=== PATIENT | male | born 1945 | race Caucasian/White ===

== ENCOUNTER 2017-09-11 17:17 | Emergency (ER) | payer MEDICARE, OTHER, SELFPAY ==
--- NOTE | 2017-09-11 17:17 | DT_ITS ---
This patient was seen during an EMR downtime September 06, 2017 - September 13, 2017. This patient may have a combination of paper and electronic documentation or all paper documentation. All documentation is viewable within the e-chart portion of [employer] for each patient visit.
--- NOTE | 2017-09-11 18:15 | CT_ITS ---
STUDY: CT SOFT TISSUE NECK WITHOUT CONTRAST REASON FOR EXAM: Male, 71 years old. Difficulty swallowing. RADIATION DOSAGE (If Supplied By Facility): CTDIvol = ( 17.61 ) mGy, DLP = ( 514.43 ) mGycm TECHNIQUE: The patient was scanned in a multi-detector CT scanner. High resolution transaxial imaging was performed without the administration of intravenous contrast material. Sagittal and coronal images were reconstructed. Individualized dose optimization techniques were used for this CT. COMPARISON: None. FINDINGS: Evaluation of the soft tissues of the neck is markedly limited without IV contrast. Cannot exclude some poorly defined asymmetric thickening of the left side of the oropharynx seen on axial images 52-70, and coronal images 45-47. The findings are not certain, but mass is not excluded. Recommend further evaluation with ENT exam and consider MRI with contrast. Normal bilateral parotid glands. 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 Normal bilateral parapharyngeal spaces. Normal bilateral carotid spaces. Normal bilateral sublingual and submandibular glands and spaces. Normal perivertebral space. Normal visualized bilateral faucial tonsils. The visualized tongue, tongue base are normal. The visualized cervical lymph nodes (levels I-) are within normal size limits, and maintain normal morphology. There is no demonstrated solid or cystic mass lesion. Normal epiglottis, bilateral vallecula and hypopharynx. The pre-epiglottic and paraglottic adipose spaces are normal. Normal visualized bilateral piriform sinuses, aryepiglottic folds, vocal cords, and arytenoid-cricoid articulations. Normal subglottic trachea. Normal bilateral lobes of the thyroid gland. Abnormal visualized lung apices. On the right, there is an incompletely visualized pulmonary infiltrate or mass. CT of the chest with contrast is recommended. Normal visualized paranasal sinuses. There is multilevel degenerative changes of the cervical spine. CT/Soft Tissue Neck WITH Contrast IMPRESSION: Note that CT of the neck is very limited without IV contrast 1. Cannot exclude some poorly defined asymmetric thickening of the left side of the oropharynx. The findings are not certain, but mass is not excluded. Recommend further evaluation with ENT exam and consider MRI with contrast. 2. Abnormal visualized lung apices. On the right, there is an incompletely visualized pulmonary infiltrate or mass. CT of the chest with contrast is recommended. Electronically Signed: Jr Lezama MD at 19:34 EDT , Service support ,
== END 2017-09-11 21:02 | disposition home or self-care (01) ==
LOC: ED 09-12 14:56
PROVIDERS: Emergency Provider Emergency Medicine; Family Provider Family Medicine; PCP Family Medicine
DX: J02.9 Acute pharyngitis, unspecified (principal); E11.9 Type 2 diabetes mellitus without complications; I10 Essential (primary) hypertension; E78.00 Pure hypercholesterolemia, unspecified; Z79.82 Long term (current) use of aspirin; Z79.84 Long term (current) use of oral hypoglycemic drugs; Z79.899 Other long term (current) drug therapy
CPT/HCPCS: 70491; 99283

== ENCOUNTER 2017-12-10 21:03 | Inpatient (IN) | payer MEDICARE, OTHER, SELFPAY ==
[2017-12-10 21:05] VITALS: BP 121/66; PULSE 121; RESP 18; TEMP 38.8; O2SAT 98; BMI 21.2
[2017-12-10 21:45] LABS: Absolute Lymphocyte Count 2.32 X10^3/ul (0.83-4.51); Absolute Neutrophil Count 17.5 X10^3/uL (2.0-7.7); Basophil# 0.03 X10^3/uL; Basophil% 0.1 % (0-1); Eosinophil# 0.35 X10^3/uL; Eosinophils% 1.6 % (0-5); Hematocrit 31.7 % (40-54); Lymphocyte # 2.32 X10^3/ul (4.0); Lymphocyte % 10.7 % (19-41); Mean Corp Hgb Conc 31.5 g/gl (32-36); Mean Corpuscular Hgb 27.3 pg (27.0-32.0); Mean Corpuscular Volume 86.6 fL (80-94); Mean Platelet Vol. 8.7 fl (6.2-12.0); Monocyte# 1.42 X10^3/uL; Monocyte% 6.6 % (0-10); Neutrophil # 17.47 X10^3/uL (2.7-7.7); Neutrophil % 80.7 % (47-70); Platelet Count 416 K/mm3 (150-450); RBC Distribution Width CV 14.2 % (11.6-14.6); RBC Distribution Width SD 43.2 fl (35.1-43.9); Red Blood Count 3.66 M/mm3 (4.6-6.2); White Blood Count 21.7 K/mm3 (4.4-11.0)
[2017-12-10 21:46] LABS: POSITIVE COUNT NO; POSITIVE DIFFERENTIAL NO; POSITIVE MORPHOLOGY NO
[2017-12-10 21:49] LABS: International Normalized Ratio 1.2; Partial Thromboplast Time 32.7 Seconds (24.1-36.2); Prothrombin Time (Protime)PT. 14.7 SECONDS (11.7-14.9)
[2017-12-10] MEDS: 0.9% Normal Saline 1,000 ML 999 ML IV (22:00)
[2017-12-10] MEDS: Acetaminophen 500 MG Tablet 1000 MG PO (22:00)
[2017-12-10 22:07] LABS: ALB/GLOB Ratio 0.5 RATIO (0.9-2.4); AST(SGOT) 13 U/L (15-37); Alanine Aminotransfer ALT/SGPT 13 U/L (16-61); Albumin, Serum 2.3 g/dL (3.2-5.0); Alkaline Phosphatase 72 U/L (45-117); Anion Gap 9 (5-15); BUN 16 mg/dL (7-18); BUN/Creat Ratio 16.9 RATIO (10-20); Calcium,Total 8.5 mg/dL (8.5-10.1); Chloride 94 mmol/L (98-107); Creatinine, Serum 0.95 mg/dL (0.70-1.30); EST Glomerular Filtration Rate 83 mL/min (>60); Est Glom Filt Rate - Afr Amer 100 mL/min (>60); Estimated Creatinine Clearance 61.33 ml/min; Globulin 4.5 g/dL (2.2-4.2); Glucose 304 mg/dL (74-106); Magnesium 1.4 mg/dL (1.6-2.6); Phosphorus 1.7 mg/dL (2.5-4.9); Potassium 3.9 mmol/L (3.5-5.1); Protein, Total 6.8 g/dL (6.4-8.2); Sodium Level 131 mmol/L (136-145)
[2017-12-10 22:22] VITALS: BP 144/101; PULSE 109; RESP 17; O2SAT 96
[2017-12-10 22:29] LABS: Bacteria 0 SEEN /hpf (None Seen); Mucous, Urine 0 SEEN /hpf (<or=2+); White Blood Cells 0 SEEN /hpf (0-5)
[2017-12-10 22:32] LABS: Color, Urine Yellow (Yellow); Glucose, Dipstick 1000 mg/dl (Normal); Ketone-Dipstick Negative (Negative); Leukocyte Esterase-Dipstick 25 /ul (Negative); Nitrite-Dipstick Negative (Negative); Occult Blood-Urine 25 /ul (Negative); Protein-Dipstick 30 mg/dl (Negative); Specific Gravity, Urine 1.015 (1.002-1.030); Urine Bilirubin Dipstick Negative (Negative); Urine Clarity Clear (Clear); Urine Urobilinogen 4 mg/dl (Normal)
[2017-12-10 22:39] LABS: Red Blood Cells-Urine 5-10 SEEN /hpf (0-5)
[2017-12-10 22:40] LABS: Squamous Epithelial Cells - UA 0-5 SEEN /hpf (0-5)
[2017-12-10] MEDS: Morphine 4 MG/ML Syringe IV (22:54)
--- NOTE | 2017-12-10 23:32 | ED.VISSUMM ---
- ER Visit Summary Date of Service: 12/10/17 Chief Complaint: Fever History of Present Illness: The patient is a [address] Chris and Dr. Young. Patient got his first dose of immunotherapy with Keytruda today. Family reports that this evening the patient developed a fever and confusion. Patient reports that he is a cough is productive white sputum without blood. He complains of mild shortness of breath. He has a mild sore throat. He does complain of dysuria. Physical Examination: Vitals: 101.8, 121/66, 121, 18, 98% on room air which is not hypoxic. General: Well-nourished and well-developed. Head: Normocephalic atraumatic. Neck: Supple, no lymphadenopathy. No JVD. Nontender. Cardiovascular: Regular tachycardic rhythm with 2 out of 6 systolic murmur. Respiratory: No respiratory distress. Rhonchi on right. Abdominal: Soft, nontender, nondistended, normal bowel sounds. No guarding, rebound, or peritoneal signs. Back: Nontender. Extremities: Nontender, no edema. Skin: Normal color, no rash. Neurologic: Alert, but confused. Cranial nerves II through XII are intact. Normal strength and sensation. Psych: Normal affect. Test Results: CBC is marked for a white count of 21.7 with 81 segmented neutrophils and 11 lymphocytes. H&H is 10.0 and 31.7. Chem-7 is more for sodium 131, chloride of 94, glucose 304. LFTs marked for an albumin of 2.3 and globulin 4.5, AST of 13, ALT of 13. INR is 1.2. PTT is 32.7. UA has 510 red blood cells and leukocyte esterase. Lactic acid is 2.0. Phosphorus is 1.7. Magnesium was 1.4. Chest x-ray shows an infiltrate on the right. There is also a mass. Emergency Department Course and Treatment: Patient was treated with meropenem IV, Tylenol p.o., and morphine IV. He is resting comfortably. As his temperature has come down his delirium has improved remarkably. Treatment Plan: Patient was discussed with Dr. Garrett. He will be admitted to the hospital for further evaluation and treatment. Disposition: Admitted in improved condition. Impression: 1. Postobstructive pneumonia. 2. Lung cancer with metastases. 3. Sepsis. This note was generated with [employer] dictation software. It may contain incorrect words, spelling, and punctuation that were not noted in review of the chart prior to signing ED Disposition - Plan for ED Patient: Chief Complaint: Fatigue Referrals: Frank Young MD [Primary Care Provider] -
--- NOTE | 2017-12-10 23:35 | ED.DCSUM_ITS ---
- ER Visit Summary Date of Service: 12/10/17 Chief Complaint: Fever History of Present Illness: The patient is a [address] Chris and Dr. Young. Patient got his first dose of immunotherapy with Keytruda today. Family reports that this evening the patient developed a fever and confusion. Patient reports that he is a cough is productive white sputum without blood. He complains of mild shortness of breath. He has a mild sore throat. He does complain of dysuria. Physical Examination: Vitals: 101.8, 121/66, 121, 18, 98% on room air which is not hypoxic. General: Well-nourished and well-developed. Head: Normocephalic atraumatic. Neck: Supple, no lymphadenopathy. No JVD. Nontender. Cardiovascular: Regular tachycardic rhythm with 2 out of 6 systolic murmur. Respiratory: No respiratory distress. Rhonchi on right. Abdominal: Soft, nontender, nondistended, normal bowel sounds. No guarding, rebound, or peritoneal signs. Back: Nontender. Extremities: Nontender, no edema. Skin: Normal color, no rash. Neurologic: Alert, but confused. Cranial nerves II through XII are intact. Normal strength and sensation. Psych: Normal affect. Test Results: CBC is marked for a white count of 21.7 with 81 segmented neutrophils and 11 lymphocytes. H&H is 10.0 and 31.7. Chem-7 is more for sodium 131, chloride of 94, glucose 304. LFTs marked for an albumin of 2.3 and globulin 4.5, AST of 13, ALT of 13. INR is 1.2. PTT is 32.7. UA has 510 red blood cells and leukocyte esterase. Lactic acid is 2.0. Phosphorus is 1.7. Magnesium was 1.4. Chest x-ray shows an infiltrate on the right. There is also a mass. Emergency Department Course and Treatment: Patient was treated with meropenem IV , Tylenol p.o., and morphine IV. He is resting comfortably. As his temperature has come down his delirium has improved remarkably. Treatment Plan: Patient was discussed with Dr. Garrett. He will be admitted to the hospital for further evaluation and treatment. Disposition: Admitted in improved condition. Impression: 1. Postobstructive pneumonia. 2. Lung cancer with metastases. 3. Sepsis. This note was generated with [employer] dictation software. It may contain incorrect words, spelling, and punctuation that were not noted in review of the chart prior to signing ED Disposition - Plan for ED Patient: Chief Complaint: Fatigue Referrals: Frank Young MD [Primary Care Provider] -
--- NOTE | 2017-12-10 23:53 | PCM.HP.STD ---
Problem List (1) Sepsis Status: Acute (2) CAP (community acquired pneumonia) Status: Acute (3) Lung cancer Status: Acute (4) Hyponatremia Status: Acute History of Present Illness Date of Admission: 12/10/17 Chief Complaint: Sepsis secondary to CAP The patient is a 71 year old male w/ h/o DMII, HTN, lipidemia and metastatic lung cancer on Keytruda admitted for sepsis secondary to CAP. He is a poor historian and history is taken from his son. He has been confused after taking Keytruda. He has worsening confusion and fever as the day progressed. Nothing improved or worsened his confusion. He has been having worsening productive cough as well. The intensity and frequency of the cough have gotten worse in the past few days. He has been having cough for months. Past Medical History Allergies meperidine HCl [From Demerol] Adverse Reaction (Verified 12/10/17 21:08) Vomiting pneumococcal vaccine Adverse Reaction (Verified 12/10/17 21:08) Upset Stomach tetanus and diphtheria toxoids [tetanus & diphtheria toxoids] Adverse Reaction (Verified 12/10/17 21:08) Upset Stomach Home Medications: Ambulatory Orders Medication Instructions Recorded Acarbose [Precose] 100 mg PO TID 07/15/14 Aspirin [Aspirin, Baby] 81 mg PO DAILY@0800 07/15/14 Carvedilol [Coreg] 3.125 mg PO BID 07/15/14 Levothyroxine [Synthroid] 50 mcg PO DAILY 07/15/14 Metformin HCl [Glucophage] 1,000 mg PO BIDCM 07/15/14 Omeprazole [Prilosec] 20 mg PO DAILY 07/15/14 Simvastatin [Zocor] 40 mg PO QHS 07/15/14 glipiZIDE [Glucotrol] 20 mg PO BIDAC 07/15/14 Surgical History: no surgical history Psychiatric History: No pertinent psych hx Lives: With Family Smoking Status: Former smoker Alcohol: None Drugs: None - *Family History Maternal History Items: No pertinent history Review of Systems Constitutional: Reports: Chills, Fever. Denies: Weight Change HEENT: Denies: Head Aches, Sinus Congestion, Sinus Drainage Cardiovascular: Denies: Chest Pain, Palpitations Respiratory: Reports: Cough, Shortness of breath at rest, Sputum production, Wheezing Gastrointestinal: Denies: Abdominal Pain, Nausea, Vomiting Genitourinary: Denies: Dysuria Musculoskeletal: Denies: Joint Pain, Joint Tenderness Skin: Denies: Rash, Wounds Neurological: Denies: Numbness, Tingling, Focal weakness Psychiatric: Denies: Anxiety, Depression, Homicidal Ideations, Suicidal Ideations Hematologic/ Lymphatic: Denies: Easy Bruising, Easy Bleeding VTE Information - Inpt Only VTE Present on Admission: No VTE Mechan Device Prophylaxis: SCD's VTE Pharm Prophylaxis ordered?: Yes Patient Problems: Active and Suspected Problems Sepsis (Acute) CAP (community acquired pneumonia) (Acute) Lung cancer (Acute) Hyponatremia (Acute) - Physical Exam General: Alert, Oriented x3, Cooperative HEENT: Atraumatic, PERRLA, EOMI, Normocephalic Neck: Supple, No JVD, Negative Carotid Bruits, Thyroid Normal Size and Texture Lungs: Diminished, Rhonchi, Short of Breath, Wheezes Cardiovascular: No murmurs, Tachycardic Abdomen: Bowel Sounds Present, Soft, Non Tender Extremities: No edema, Capillary Refill Less than 3 Seconds Skin: No rashes, No breakdown Musculoskeletal: No Tenderness to Palpation of Joints or Extremities Neurological: Cranial nerves II-XII grossly intact Psych/Mental Status: Normal Affect, Appropriate Vital Signs Temp Pulse Resp BP Pulse Ox 101.8 F H 109 H 17 144/101 H 96 12/10/17 21:05 12/10/17 22:22 12/10/17 22:22 12/10/17 22:22 12/10/17 22:22 Assessment/Plan All Active Problems Sepsis (Acute) CAP (community acquired pneumonia) (Acute) Lung cancer (Acute) Hyponatremia (Acute) 71 year old male w/ h/o DMII, HTN, lipidemia and metastatic lung cancer on Keytruda admitted for sepsis secondary to CAP. 1) Sepsis secondary to CAP: Chest xray disclosed Right upper lobe mass like opacity / infiltrate. Right pulmonary interstitial prominence. Probable postobstructive. WBC 21 Pt has cough and fever. Will start zosyn and vancomycin given immunosuppression. Hydration. Cultures pending. 2) Lung cancer w/ mets: Pt is on Keytruda. Supportive care. 3) HTN: Resume home meds. Cautious with b/p control in the setting of sepsis. 4) Prophylaxis: SCD / lovenox.
[2017-12-11] VITALS (19 sets, daily range): BP systolic 93–127; BP diastolic 55–60; PULSE 68–110; RESP 16–18; TEMP 36.4–37.6; O2SAT 94–96; BMI 21.9
[2017-12-11 01:01] LABS: Bedside Glucose 248 mg/dL (70-110)
[2017-12-11] MEDS: 0.9% NaCl Peripheral Flush Adult/Peds IV (01:20)
[2017-12-11] MEDS: Vancomycin IV 1,000 MG/200 ML BAG 200 MG IV (01:21)
[2017-12-11] MEDS: Piperacil/Tazobactam 3.375 GM/50 ML ML IV ×4 (01:21→21:08)
[2017-12-11] MEDS: 0.9% Normal Saline 1,000 ML 125 ML IV ×4 (01:21→21:14)
[2017-12-11 01:35] LABS: Reflex Lactate? Y
--- NOTE | 2017-12-11 01:48 | PCM.RX.CS ---
Consult Pharmacy has been consulted to manage selected antiobiotic: Vancomycin Type of Consult: New start Suspected Infection: Pneumonia Prior Doses of Antibiotics Received/Current Regimen: Medications Vancomycin HCl 750 mg/ Sodium (Chloride) 265 mls @ 250 mls/hr IV Q12H ALONZO Discontinued Medications Vancomycin HCl (Vancomycin) 1,000 mg in 200 mls @ 200 mls/hr IV RX TO DOSE ONE Stop: 12/11/17 01:29 Last Admin: 12/11/17 01:21 Dose: 200 mls/hr Labs: Sodium 131 mmol/L (136-145) L 12/10/17 21:27 Potassium 3.9 mmol/L (3.5-5.1) 12/10/17 21:27 Chloride 94 mmol/L (98-107) L 12/10/17 21:27 Carbon Dioxide 28.0 mmol/L (21.0-32.0) 12/10/17 21:27 Anion Gap 9 (5-15) 12/10/17 21:27 BUN 16 mg/dL (7-18) 12/10/17 21:27 Creatinine 0.95 mg/dL (0.70-1.30) 12/10/17 21:27 Est GFR (MDRD) Af Amer 100 mL/min (>60) 12/10/17 21:27 Est GFR (MDRD) Non-Af 83 mL/min (>60) 12/10/17 21:27 BUN/Creatinine Ratio 16.9 RATIO (10-20) 12/10/17 21:27 Glucose 304 mg/dL (74-106) H 12/10/17 21:27 Microbiology: Microbiology 12/11/17 01:00 Mucosa - Nose Influenza Types A,B Direct FA (DAVINA) - Final Weight used for dosin.5 kg Estimated Creatinine Clearance: 61 Goal Trough: 15-20 mcg/mL Pharmacy Plan for Drug Dosing: Pharmacy Service will continue to monitor and adjust dosing as required. Follow-Up Labs: Trough Vancomycin Labs to be done on [date and time ordered]: 12/12/17 @1300
[2017-12-11] MEDS: Na Biphos/Potassium Phosphate PACKET 1 PACKET PO (02:32)
[2017-12-11 02:44] LABS: Lactic Acid 0.7 mmol/L (0.4-2.0)
[2017-12-11] MEDS: Levothyroxine 50 MCG Tablet PO (05:23)
[2017-12-11 06:56] LABS: Bedside Glucose 206 mg/dL (70-110)
[2017-12-11] MEDS: Ipratropium/Albuterol Sulfate 3 ML AMPUL.NEB INHALATION ×3 (07:21→18:53)
[2017-12-11 07:25] LABS: Anion Gap 8 (5-15); BUN 11 mg/dL (7-18); BUN/Creat Ratio 13.8 RATIO (10-20); Chloride 99 mmol/L (98-107); EST Glomerular Filtration Rate 101 mL/min (>60); Est Glom Filt Rate - Afr Amer 122 mL/min (>60); Estimated Creatinine Clearance 74.97 ml/min; Glucose 257 mg/dL (74-106); Potassium 3.7 mmol/L (3.5-5.1); Sodium Level 136 mmol/L (136-145); Thyroid Stim Hormone (TSH) 2.58 uIU/mL (0.358-3.74)
[2017-12-11 07:46] LABS: Urine Sodium 47 mmol/L (Not Establ.)
[2017-12-11] MEDS: glipiZIDE 10 MG Tablet 20 MG PO ×2 (08:39→17:02)
[2017-12-11] MEDS: Carvedilol 3.125 MG TABLET PO ×2 (08:39→21:08)
[2017-12-11] MEDS: Enoxaparin 40 MG/0.4 ML Syringe SC (08:39)
[2017-12-11] MEDS: Aspirin 81 MG TAB.CHEW PO (08:39)
[2017-12-11] MEDS: Pantoprazole Sodium 20 MG Tablet PO (08:39)
[2017-12-11] MEDS: metFORMIN HCl 1,000 MG Tablet 1000 MG PO ×2 (08:39→17:01)
[2017-12-11] MEDS: guaiFENesin 1,200 MG Tablet 1200 MG PO ×2 (08:40→21:08)
[2017-12-11] MEDS: Acarbose 50 MG Tablet 100 MG PO ×3 (08:46→17:01)
[2017-12-11] MEDS: Insulin Lispro 100 UNIT/ML INSULN.PEN SC ×4 (08:46→21:08)
[2017-12-11 09:16] LABS: Osmolality, Urine 238 mOsm/KG
[2017-12-11 09:19] LABS: Osmolality, Serum 285 mOsm/KG (280-301)
[2017-12-11] MEDS: Glucerna Shake 120 ML LIQUID PO (11:25)
[2017-12-11 11:36] LABS: Bedside Glucose 194 mg/dL (70-110)
--- NOTE | 2017-12-11 12:40 | CASEMGMT ---
Addendum entered by Marie Woodard 12/11/17 14:54: Re-attempted to assess patient. Provider at bedside. Original Note: Attempted to perform case management initial assessment. Patient receiving care at this time. Will reattempt as time allows.
[2017-12-11 16:21] LABS: Bedside Glucose 153 mg/dL (70-110)
--- NOTE | 2017-12-11 16:33 | PCM.PN.HOSP ---
Patient Problems: Active and Suspected Problems Sepsis (Acute) CAP (community acquired pneumonia) (Acute) Lung cancer (Acute) Hyponatremia (Acute) Subjective: Patient advanced metastatic lung cancer on immunotherapy, Justine was admitted yesterday secondary to sepsis from postobstructive pneumonia. Patient has memory lapses and cognitive deficit as per the son therefore most probably dementia. Patient gets easily short of breath on exertion, walking or climbing stairs. He has worsening cough and brings up mucoid sputum. Denies chest pain/chest pressure Patient had 101.8?F in ER. No fever afterwards. Vitals/I&O's: Vital Signs Temp Pulse Resp BP Pulse Ox 99 F 102 H 18 109/55 L 94 12/11/17 14:55 12/11/17 14:55 12/11/17 14:55 12/11/17 14:55 12/11/17 14:55 Oxygen Delivery Method Room Air Weight: 139 lb 15.896 oz Body Mass Index (BMI) 21.9 Intake and Output for Last 24 Hours 12/09/17 12/10/17 12/11/17 23:59 23:59 23:59 Intake Total 782 / 782 Output Total 1250 / 1250 Balance -468 / -468 General: Alert, Oriented x3, Cooperative HEENT: Atraumatic, PERRLA, EOMI, Normocephalic Neck: Supple, No JVD, Negative Carotid Bruits Lungs: Diminished, Rhonchi, - - Dyspnea on exertion Cardiovascular: Regular rate, No murmurs Abdomen: Bowel Sounds Present, Soft, Non Tender, Non-Distended Extremities: No edema, Capillary Refill Less than 3 Seconds Skin: No rashes, No breakdown Musculoskeletal: No Tenderness to Palpation of Joints or Extremities, Arthritic Changes, Muscle Wasting Neurological: Cranial nerves II-XII grossly intact Psych/Mental Status: Normal Affect, Appropriate Microbiology Past 72 Hours 12/11/17 08:50 Sputum, Expectorated/Coughed Gram Stain - Final 12/11/17 01:00 Mucosa - Nose Influenza Types A,B Direct FA (DAVINA) - Final Laboratory Results 12/11/17 00:52: POC Glucose 248 H 12/11/17 02:10: Lactic Acid 0.7 12/11/17 05:20: Urine Osmolality 238 12/11/17 05:20: Ur Random Sodium 47 12/11/17 06:07: Serum Osmolality 285 12/11/17 06:07: TSH Cancelled 12/11/17 06:07: Sodium 136, Potassium 3.7, Chloride 99, Carbon Dioxide 29.0, Anion Gap 8, BUN 11, Creatinine 0.80, Estim Creat Clear Calc 74.97, Est GFR (MDRD) Af Amer 122, Est GFR (MDRD) Non-Af 101, BUN/Creatinine Ratio 13.8, Glucose 257 H, Calcium 8.0 L, TSH 2.58 12/11/17 06:53: POC Glucose 206 H 12/11/17 11:20: POC Glucose 194 H 12/11/17 16:15: POC Glucose 153 H Current Medications Acarbose (Precose) 100 mg PO TIDCM [facility] Last Admin: 12/11/17 11:24 Dose: 100 mg Acetaminophen (Tylenol) 650 mg PO Q4H PRN PRN PRN Reason: FEVER Albuterol/Ipratropium (Duoneb) 3 ml INHALATION Q6H.RT [facility] Last Admin: 12/11/17 12:39 Dose: 3 ml Aspirin (Aspirin, Baby) 81 mg PO DAILY@0800 [facility] Last Admin: 12/11/17 08:39 Dose: 81 mg Atorvastatin Calcium (Lipitor) 20 mg PO QHS [facility] Carvedilol (Coreg) 3.125 mg PO BID [facility] Last Admin: 12/11/17 08:39 Dose: 3.125 mg Enoxaparin Sodium (Lovenox) 40 mg SC DAILY [facility] Last Admin: 12/11/17 08:39 Dose: 40 mg Glipizide (Glucotrol) 20 mg PO BIDAC [facility] Last Admin: 12/11/17 08:39 Dose: 20 mg Guaifenesin (Mucinex) 1,200 mg PO BID [facility] Last Admin: 12/11/17 08:40 Dose: 1,200 mg Sodium Chloride () 1,000 mls @ 125 mls/hr IV .Q8H [facility] Last Admin: 12/11/17 12:41 Dose: 125 mls/hr Piperacillin Sod/Tazobactam Sod (Zosyn) 3.375 gm in 50 mls @ 12.5 mls/hr IV Q8 [facility] Last Admin: 12/11/17 13:04 Dose: 12.5 mls/hr Sodium Chloride () 250 mls @ 15 mls/hr IV .[id number] PRN PRN Reason: SALINE FLUSH Vancomycin HCl 750 mg/ Sodium (Chloride) 265 mls @ 250 mls/hr IV Q12H [facility] Last Admin: 12/11/17 13:04 Dose: 250 mls/hr Insulin Human Lispro (Humalog Kwikpen (Bkc)) 0 unit SC ACHS ALONZO PRN Reason: Protocol Last Admin: 12/11/17 11:24 Dose: 1 u Levothyroxine Sodium (Synthroid) 50 mcg PO DAILY@0600 [facility] Last Admin: 12/11/17 05:23 Dose: 50 mcg Metformin HCl (Glucophage) 1,000 mg PO BIDCM [facility] Last Admin: 12/11/17 08:39 Dose: 1,000 mg Nutritional Formula (Lactose Free) (Glucerna Shake) 120 ml PO 4X/DAY [facility] Ondansetron HCl (Zofran) 4 mg IV Q8H PRN PRN PRN Reason: NAUSEA Pantoprazole Sodium (Protonix) 20 mg PO DAILY [facility] Last Admin: 12/11/17 08:39 Dose: 20 mg Sodium Chloride () 5 - 30 ml IV UD PRN PRN Reason: SALINE FLUSH Last Admin: 12/11/17 01:20 Dose: 20 ml Medical Necessity - Tobacco Use Smoking Status: Former smoker Assessment/Plan All Active Problems Sepsis (Acute) CAP (community acquired pneumonia) (Acute) Lung cancer (Acute) Hyponatremia (Acute) This is a 71-year-old gentleman with history DMII, HTN, dyslipidemia and advanced metastatic lung cancer on immunotherapy, Keytruda was admitted yesterday secondary to sepsis from postobstructive pneumonia. Patient has chronic cough but has worsened for about the past few days along with fever and shortness of breath. 1) Sepsis (fever, leukocytosis with left shift) due to postobstructive right upper lobe community-acquired pneumonia: Chest xray disclosed Right upper lobe mass like opacity / infiltrate. Right pulmonary interstitial prominence. WBC 21 Pt has cough and fever. On Zosyn and vancomycin given immunosuppression. Hydration. Urinary antigens are negative. Blood culture pending. Influenza is negative. sputum culture pending. Hypotonic, hypovolemic hyponatremia: serum sodium is 131 which improved to 136 on IV fluid normal saline. Random urine sodium 47. Random urine osmolality 238 2) Lung cancer w/ mets: Pt is on Keytruda. Patient follows Dr. Chris. Had first dose of IV infusion on day of admission Supportive care. 3) HTN: Resume home meds. Cautious with b/p control in the setting of sepsis. 4) Prophylaxis: SCD / lovenox. Microbiology Past 72 Hours 12/11/17 08:50 Sputum, Expectorated/Coughed Gram Stain - Final 12/10/17 21:35 Mucosa - Throat Group A Streptococcus Rapid Screen - Preliminary 12/10/17 22:10 Urine, Clean Catch Legionella Antigen - Final 12/11/17 01:00 Mucosa - Nose Influenza Types A,B Direct FA (DAVINA) - Final Laboratory Results 12/10/17 21:27: WBC 21.7 H, RBC 3.66 L, Hgb 10.0 L, Hct 31.7 L, MCV 86.6, MCH 27.3, MCHC 31.5 L, RDW 14.2, RDW Differential 43.2, Plt Count 416, MPV 8.7, Immature Gran % (Auto) 0.300, Neut % (Auto) 80.7 H, Lymph % (Auto) 10.7 L, Humphreys % (Auto) 6.6, Eos % (Auto) 1.6, Baso % (Auto) 0.1, Absolute Neuts (auto) 17.5 H, Absolute Lymphs (auto) 2.32, Total Counted Not Reportable 12/10/17 21:27: PT 14.7, INR 1.2, APTT 32.7 12/10/17 21:27: Sodium 131 L, Potassium 3.9, Chloride 94 L, Carbon Dioxide 28.0, Anion Gap 9, BUN 16, Creatinine 0.95, Estim Creat Clear Calc 61.33, Est GFR (MDRD) Af Amer 100, Est GFR (MDRD) Non-Af 83, BUN/Creatinine Ratio 16.9, Glucose 304 H, Calcium 8.5, Phosphorus 1.7 L, Magnesium 1.4 L, Total Bilirubin 0.30, AST 13 L, ALT 13 L, Alkaline Phosphatase 72, Total Protein 6.8, Albumin 2.3 L, Globulin 4.5 H, Albumin/Globulin Ratio 0.5 L 12/10/17 21:27: Lactic Acid 2.0 12/10/17 22:10: Urine Color Yellow, Urine Clarity Clear, Urine pH 8.0, Ur Specific [place] 1.015, Urine Protein 30 H, Urine Glucose (UA) 1000 H, Urine Ketones Negative, Urine Occult Blood 25 H, Urine Nitrite Negative, Urine Bilirubin Negative, Urine Urobilinogen 4 H, Ur Leukocyte Esterase 25 H, Urine RBC 5-10 SEEN, Urine WBC 0 SEEN, Ur Squamous Epith Cells 0-5 SEEN, Urine Bacteria 0 SEEN, Urine Mucus 0 SEEN 12/11/17 00:52: POC Glucose 248 H 12/11/17 02:10: Lactic Acid 0.7 12/11/17 05:20: Urine Osmolality 238 12/11/17 05:20: Ur Random Sodium 47 12/11/17 06:07: Serum Osmolality 285 12/11/17 06:07: TSH Cancelled 12/11/17 06:07: Sodium 136, Potassium 3.7, Chloride 99, Carbon Dioxide 29.0, Anion Gap 8, BUN 11, Creatinine 0.80, Estim Creat Clear Calc 74.97, Est GFR (MDRD) Af Amer 122, Est GFR (MDRD) Non-Af 101, BUN/Creatinine Ratio 13.8, Glucose 257 H, Calcium 8.0 L, TSH 2.58 Chest X-Ray 12/10/17 21:40 IMPRESSION: Right upper lobe masslike opacity/infiltrate. Right pulmonary interstitial prominence. Code Visit Inpatient E&M: 58781 Subs Hosp L3
[2017-12-11] MEDS: Atorvastatin Calcium 20 MG Tablet PO (21:08)
[2017-12-11 23:01] LABS: Bedside Glucose 281 mg/dL (70-110)
[2017-12-12] VITALS (15 sets, daily range): BP systolic 97–111; BP diastolic 50–60; PULSE 61–109; RESP 14–18; TEMP 36.4–38.3; O2SAT 95–96
[2017-12-12] MEDS: Ipratropium/Albuterol Sulfate 3 ML AMPUL.NEB INHALATION ×4 (00:14→19:18)
[2017-12-12] MEDS: guaiFENesin/Codeine 5 ML UDC PO ×2 (00:34→18:48)
[2017-12-12] MEDS: Acetaminophen 325 MG Tablet 650 MG PO ×2 (02:53→18:48)
[2017-12-12 04:26] LABS: Bedside Glucose 167 mg/dL (70-110)
[2017-12-12] MEDS: 0.9% Normal Saline 1,000 ML 125 ML IV ×2 (05:16→13:31)
[2017-12-12] MEDS: Levothyroxine 50 MCG Tablet PO (05:16)
[2017-12-12] MEDS: Piperacil/Tazobactam 3.375 GM/50 ML ML IV ×3 (05:16→21:53)
[2017-12-12 07:13] LABS: Absolute Lymphocyte Count 1.46 X10^3/ul (0.83-4.51); Basophil# 0.02 X10^3/uL; Basophil% 0.1 % (0-1); Eosinophil# 0.46 X10^3/uL; Eosinophils% 3.1 % (0-5); Hematocrit 26.2 % (40-54); Hemoglobin 8.2 g/dl (13.0-16.5); Lymphocyte # 1.46 X10^3/ul (4.0); Lymphocyte % 9.7 % (19-41); Mean Corp Hgb Conc 31.3 g/gl (32-36); Mean Corpuscular Hgb 27.1 pg (27.0-32.0); Mean Corpuscular Volume 86.5 fL (80-94); Mean Platelet Vol. 8.5 fl (6.2-12.0); Monocyte# 1.04 X10^3/uL; Monocyte% 6.9 % (0-10); Neutrophil # 12.04 X10^3/uL (2.7-7.7); Neutrophil % 80.1 % (47-70); Platelet Count 289 K/mm3 (150-450); RBC Distribution Width CV 14.9 % (11.6-14.6); RBC Distribution Width SD 47.2 fl (35.1-43.9); Red Blood Count 3.03 M/mm3 (4.6-6.2)
[2017-12-12 07:15] LABS: POSITIVE COUNT NO; POSITIVE DIFFERENTIAL NO; POSITIVE MORPHOLOGY NO
[2017-12-12 07:46] LABS: Anion Gap 9 (5-15); BUN 9 mg/dL (7-18); BUN/Creat Ratio 12.2 RATIO (10-20); Calcium,Total 7.4 mg/dL (8.5-10.1); Chloride 104 mmol/L (98-107); Creatinine, Serum 0.74 mg/dL (0.70-1.30); EST Glomerular Filtration Rate 110 mL/min (>60); Est Glom Filt Rate - Afr Amer 134 mL/min (>60); Estimated Creatinine Clearance 59.97 ml/min; Glucose 155 mg/dL (74-106); Potassium 3.7 mmol/L (3.5-5.1); Sodium Level 138 mmol/L (136-145)
[2017-12-12 08:56] LABS: Bedside Glucose 153 mg/dL (70-110)
[2017-12-12] MEDS: Insulin Lispro 100 UNIT/ML INSULN.PEN SC ×3 (09:03→21:53)
[2017-12-12] MEDS: glipiZIDE 10 MG Tablet 20 MG PO ×2 (09:04→16:51)
[2017-12-12] MEDS: guaiFENesin 1,200 MG Tablet 1200 MG PO ×2 (09:04→21:53)
[2017-12-12] MEDS: Acarbose 50 MG Tablet 100 MG PO ×3 (09:04→16:51)
[2017-12-12] MEDS: metFORMIN HCl 1,000 MG Tablet 1000 MG PO ×2 (09:04→16:51)
[2017-12-12] MEDS: Glucerna Shake 120 ML LIQUID PO ×2 (09:05→13:33)
[2017-12-12] MEDS: Pantoprazole Sodium 20 MG Tablet PO (09:05)
[2017-12-12] MEDS: Aspirin 81 MG TAB.CHEW PO (09:05)
[2017-12-12] MEDS: Carvedilol 3.125 MG TABLET PO ×2 (09:05→21:53)
[2017-12-12] MEDS: Enoxaparin 40 MG/0.4 ML Syringe SC (09:05)
[2017-12-12 11:21] LABS: Bedside Glucose 238 mg/dL (70-110)
[2017-12-12 14:17] LABS: Vancomycin, Trough Level 8.7 ug/mL (5.0-15.0)
[2017-12-12 16:05] LABS: M R Staph aureus DNA By PCR Negative (Negative)
[2017-12-12 16:06] LABS: Probe Check PASS; Specimen Processing Control PASS
--- NOTE | 2017-12-12 16:45 | PCM.PN.HOSP ---
Patient Problems: Active and Suspected Problems Sepsis (Acute) CAP (community acquired pneumonia) (Acute) Lung cancer (Acute) Hyponatremia (Acute) Subjective: Patient is still spikes temperature, T-max 100.9 Fahrenheit, about 3 AM today On IV vancomycin and Zosyn. Patient walking in hallway. Vitals/I&O's: Vital Signs Temp Pulse Resp BP Pulse Ox 98.6 F 80 18 108/60 96 12/12/17 14:50 12/12/17 15:10 12/12/17 14:50 12/12/17 14:50 12/12/17 14:50 Oxygen Flow Rate (L/min) 2 Oxygen Delivery Method Room Air Weight: 139 lb 15.896 oz Body Mass Index (BMI) 21.9 Intake and Output for Last 24 Hours 12/10/17 12/11/17 12/12/17 23:59 23:59 23:59 Intake Total 2882 / 2882 3765 / 3765 Output Total 2200 / 2200 2200 / 2200 Balance 682 / 682 1565 / 1565 General: Alert, Oriented x3, Cooperative HEENT: Atraumatic, PERRLA, EOMI, Normocephalic Neck: Supple, No JVD, Negative Carotid Bruits Lungs: Clear to auscultation, No rhonchi, No wheeze, No rales, Diminished Cardiovascular: Regular rate, Regular Rhythm, Normal S1, Normal S2, No murmurs Abdomen: Bowel Sounds Present, Soft, Non Tender, Non-Distended Extremities: No edema, Capillary Refill Less than 3 Seconds Skin: No rashes, No breakdown Musculoskeletal: No Tenderness to Palpation of Joints or Extremities Neurological: Cranial nerves II-XII grossly intact Psych/Mental Status: Normal Affect, Appropriate Microbiology Past 72 Hours 12/11/17 08:50 Sputum, Expectorated/Coughed Gram Stain - Final 12/11/17 08:50 Sputum, Expectorated/Coughed Respiratory Culture - Preliminary Appears to be normal respiratory isaiah. Further studies to follow. 12/11/17 01:00 Mucosa - Nose Influenza Types A,B Direct FA (DAVINA) - Final Laboratory Results 12/11/17 21:03: POC Glucose 281 H 12/12/17 04:23: POC Glucose 167 H 12/12/17 05:55: WBC 15.0 H, RBC 3.03 L, Hgb 8.2 L, Hct 26.2 L, MCV 86.5, MCH 27.1, MCHC 31.3 L, RDW 14.9 H, RDW Differential 47.2 H, Plt Count 289, MPV 8.5, Immature Gran % (Auto) 0.100, Neut % (Auto) 80.1 H, Lymph % (Auto) 9.7 L, Warren % (Auto) 6.9, Eos % (Auto) 3.1, Baso % (Auto) 0.1, Absolute Neuts (auto) 12.0 H, Absolute Lymphs (auto) 1.46, Total Counted Not Reportable 12/12/17 05:55: Sodium 138, Potassium 3.7, Chloride 104, Carbon Dioxide 25.0, Anion Gap 9, BUN 9, Creatinine 0.74, Estim Creat Clear Calc 59.97, Est GFR (MDRD) Af Amer 134, Est GFR (MDRD) Non-Af 110, BUN/Creatinine Ratio 12.2, Glucose 155 H, Calcium 7.4 L 12/12/17 06:51: POC Glucose 153 H 12/12/17 11:01: POC Glucose 238 H 12/12/17 12:30: MRSA (PCR) Negative 12/12/17 13:15: Vancomycin Trough 8.7 Current Medications Acarbose (Precose) 100 mg PO TIDCM [facility] Last Admin: 12/12/17 11:06 Dose: 100 mg Acetaminophen (Tylenol) 650 mg PO Q4H PRN PRN PRN Reason: FEVER Last Admin: 12/12/17 02:53 Dose: 650 mg Albuterol/Ipratropium (Duoneb) 3 ml INHALATION Q6H.RT [facility] Last Admin: 12/12/17 12:58 Dose: 3 ml Aspirin (Aspirin, Baby) 81 mg PO DAILY@0800 [facility] Last Admin: 12/12/17 09:05 Dose: 81 mg Atorvastatin Calcium (Lipitor) 20 mg PO QHS [facility] Last Admin: 12/11/17 21:08 Dose: 20 mg Carvedilol (Coreg) 3.125 mg PO BID [facility] Last Admin: 12/12/17 09:05 Dose: 3.125 mg Enoxaparin Sodium (Lovenox) 40 mg SC DAILY [facility] Last Admin: 12/12/17 09:05 Dose: 40 mg Glipizide (Glucotrol) 20 mg PO BIDAC [facility] Last Admin: 12/12/17 09:04 Dose: 20 mg Guaifenesin (Mucinex) 1,200 mg PO BID [facility] Last Admin: 12/12/17 09:04 Dose: 1,200 mg Guaifenesin/Codeine Phosphate (Robitussin Ac) 5 ml PO Q6H PRN PRN PRN Reason: COUGH Last Admin: 12/12/17 00:34 Dose: 5 ml Sodium Chloride () 1,000 mls @ 125 mls/hr IV .Q8H [facility] Last Admin: 12/12/17 13:31 Dose: 125 mls/hr Piperacillin Sod/Tazobactam Sod (Zosyn) 3.375 gm in 50 mls @ 12.5 mls/hr IV Q8 [facility] Last Admin: 12/12/17 13:33 Dose: 12.5 mls/hr Sodium Chloride () 250 mls @ 15 mls/hr IV .[id number] PRN PRN Reason: SALINE FLUSH Vancomycin HCl 750 mg/ Sodium (Chloride) 265 mls @ 250 mls/hr IV Q12H [facility] Last Admin: 12/12/17 13:32 Dose: 250 mls/hr Insulin Human Lispro (Humalog Kwikpen (Bkc)) 0 unit SC ACHS [facility] PRN Reason: Protocol Last Admin: 12/12/17 11:05 Dose: 2 u Levothyroxine Sodium (Synthroid) 50 mcg PO DAILY@0600 [facility] Last Admin: 12/12/17 05:16 Dose: 50 mcg Metformin HCl (Glucophage) 1,000 mg PO BIDCM [facility] Last Admin: 12/12/17 09:04 Dose: 1,000 mg Nutritional Formula (Lactose Free) (Glucerna Shake) 120 ml PO 4X/DAY [facility] Last Admin: 12/12/17 13:33 Dose: 120 ml Ondansetron HCl (Zofran) 4 mg IV Q8H PRN PRN PRN Reason: NAUSEA Pantoprazole Sodium (Protonix) 20 mg PO DAILY [facility] Last Admin: 12/12/17 09:05 Dose: 20 mg Sodium Chloride () 5 - 30 ml IV UD PRN PRN Reason: SALINE FLUSH Last Admin: 12/11/17 01:20 Dose: 20 ml Medical Necessity - Tobacco Use Smoking Status: Former smoker Assessment/Plan All Active Problems Sepsis (Acute) CAP (community acquired pneumonia) (Acute) Lung cancer (Acute) Hyponatremia (Acute) This is a 71-year-old gentleman with history DMII, HTN, dyslipidemia and advanced metastatic lung cancer on immunotherapy, Keytruda was admitted yesterday secondary to sepsis from postobstructive pneumonia. Patient has chronic cough but has worsened for about the past few days along with fever and shortness of breath. 1) Sepsis (fever, leukocytosis with left shift) due to postobstructive right upper lobe community-acquired pneumonia: Chest xray disclosed Right upper lobe mass like opacity / infiltrate. Right pulmonary interstitial prominence. Patient has flu test, urinary antigens for Legionella and Streptococcus are negative. Preliminary sputum culture shows normal respiratory isaiah. Blood cultures pending but probably negative for 48 hours WBC 21, currently 15,000 Pt has cough and fever. On Zosyn and vancomycin given immunosuppression. MRSA screen is negative therefore discontinue vancomycin patient had vancomycin for about 2 days. Urinary antigens are negative. Blood culture pending. Influenza is negative. sputum culture pending. Hypotonic, hypovolemic hyponatremia: serum sodium is 131 which improved to 138 on IV fluid normal saline. Random urine sodium 47. Random urine osmolality 238. Corrected. Discontinue IV fluid normal saline. 2) Lung cancer w/ mets: Pt is on Keytruda. Patient follows Dr. Chris. Had first dose of IV infusion on day of admission Supportive care. 3) HTN: Resume home meds. Cautious with b/p control in the setting of sepsis. 4) Prophylaxis: SCD / lovenox. Microbiology Past 72 Hours 12/11/17 08:50 Sputum, Expectorated/Coughed Gram Stain - Final 12/11/17 08:50 Sputum, Expectorated/Coughed Respiratory Culture - Preliminary Appears to be normal respiratory isaiah. Further studies to follow. 12/10/17 22:10 Urine, Clean Catch Urine Culture - Preliminary Culture exhibits no growth. 12/10/17 21:35 Mucosa - Throat Group A Streptococcus Rapid Screen - Final 12/10/17 22:10 Urine, Clean Catch Legionella Antigen - Final 12/11/17 01:00 Mucosa - Nose Influenza Types A,B Direct FA (DAVINA) - Final Laboratory Results 12/11/17 21:03: POC Glucose 281 H 12/12/17 04:23: POC Glucose 167 H 12/12/17 05:55: WBC 15.0 H, RBC 3.03 L, Hgb 8.2 L, Hct 26.2 L, MCV 86.5, MCH 27.1, MCHC 31.3 L, RDW 14.9 H, RDW Differential 47.2 H, Plt Count 289, MPV 8.5, Immature Gran % (Auto) 0.100, Neut % (Auto) 80.1 H, Lymph % (Auto) 9.7 L, Warren % (Auto) 6.9, Eos % (Auto) 3.1, Baso % (Auto) 0.1, Absolute Neuts (auto) 12.0 H, Absolute Lymphs (auto) 1.46, Total Counted Not Reportable 12/12/17 05:55: Sodium 138, Potassium 3.7, Chloride 104, Carbon Dioxide 25.0, Anion Gap 9, BUN 9, Creatinine 0.74, Estim Creat Clear Calc 59.97, Est GFR (MDRD) Af Amer 134, Est GFR (MDRD) Non-Af 110, BUN/Creatinine Ratio 12.2, Glucose 155 H, Calcium 7.4 L 12/12/17 06:51: POC Glucose 153 H 12/12/17 11:01: POC Glucose 238 H 12/12/17 12:30: MRSA (PCR) Negative 12/12/17 13:15: Vancomycin Trough 8.7 Chest X-Ray 12/10/17 21:40 IMPRESSION: Right upper lobe masslike opacity/infiltrate. Right pulmonary interstitial prominence. Code Visit Inpatient E&M: 45048 [facility] Hosp L3
[2017-12-12 17:11] LABS: Bedside Glucose 111 mg/dL (70-110)
[2017-12-12] MEDS: 0.9% NaCl Peripheral Flush Adult/Peds IV (21:53)
[2017-12-12] MEDS: Atorvastatin Calcium 20 MG Tablet PO (21:53)
[2017-12-12 22:06] LABS: Bedside Glucose 194 mg/dL (70-110)
[2017-12-13] VITALS (8 sets, daily range): BP systolic 122–130; BP diastolic 54–70; PULSE 75–93; RESP 16–20; TEMP 37.2; O2SAT 92–96
[2017-12-13] MEDS: guaiFENesin/Codeine 5 ML UDC PO (01:31)
[2017-12-13] MEDS: Ipratropium/Albuterol Sulfate 3 ML AMPUL.NEB INHALATION ×2 (01:52→07:11)
[2017-12-13] MEDS: Levothyroxine 50 MCG Tablet PO (05:25)
[2017-12-13] MEDS: Piperacil/Tazobactam 3.375 GM/50 ML ML IV (05:25)
[2017-12-13 06:00] LABS: Absolute Lymphocyte Count 1.94 X10^3/ul (0.83-4.51); Absolute Neutrophil Count 11.8 X10^3/uL (2.0-7.7); Basophil# 0.04 X10^3/uL; Basophil% 0.3 % (0-1); Eosinophil# 0.63 X10^3/uL; Eosinophils% 4.1 % (0-5); Hematocrit 30.8 % (40-54); Hemoglobin 9.7 g/dl (13.0-16.5); Lymphocyte # 1.94 X10^3/ul (4.0); Lymphocyte % 12.5 % (19-41); Mean Corp Hgb Conc 31.5 g/gl (32-36); Mean Corpuscular Hgb 27.5 pg (27.0-32.0); Mean Corpuscular Volume 87.3 fL (80-94); Mean Platelet Vol. 8.7 fl (6.2-12.0); Monocyte# 1.01 X10^3/uL; Monocyte% 6.5 % (0-10); Neutrophil # 11.83 X10^3/uL (2.7-7.7); Neutrophil % 76.1 % (47-70); Platelet Count 357 K/mm3 (150-450); RBC Distribution Width CV 14.6 % (11.6-14.6); RBC Distribution Width SD 44.7 fl (35.1-43.9); Red Blood Count 3.53 M/mm3 (4.6-6.2); White Blood Count 15.5 K/mm3 (4.4-11.0)
[2017-12-13 06:29] LABS: POSITIVE COUNT NO; POSITIVE DIFFERENTIAL NO; POSITIVE MORPHOLOGY NO
[2017-12-13 07:01] LABS: Bedside Glucose 156 mg/dL (70-110)
[2017-12-13] MEDS: Carvedilol 3.125 MG TABLET PO (08:57)
[2017-12-13] MEDS: metFORMIN HCl 1,000 MG Tablet 1000 MG PO (08:57)
[2017-12-13] MEDS: guaiFENesin 1,200 MG Tablet 1200 MG PO (08:57)
[2017-12-13] MEDS: glipiZIDE 10 MG Tablet 20 MG PO (08:58)
[2017-12-13] MEDS: Insulin Lispro 100 UNIT/ML INSULN.PEN SC ×2 (08:58→11:19)
[2017-12-13] MEDS: Pantoprazole Sodium 20 MG Tablet PO (08:58)
[2017-12-13] MEDS: Aspirin 81 MG TAB.CHEW PO (08:58)
[2017-12-13] MEDS: Enoxaparin 40 MG/0.4 ML Syringe SC (08:58)
[2017-12-13] MEDS: Acarbose 50 MG Tablet 100 MG PO ×2 (08:58→11:19)
--- NOTE | 2017-12-13 10:41 | PCM.DC ---
- Discharge Diagnoses Current Active Problems: Current Active and Chronic Problems Sepsis (Acute) CAP (community acquired pneumonia) (Acute) Lung cancer (Acute) Hyponatremia (Acute) You will use the following diet at home:: Cardiac Your food should be the consistency of: Regular Your liquids should be the consistency of: Regular/Thin Discharge Activity: Return to Normal Activity Weight Bearing Status: Weight bearing as tolerated Call your doctor if you observe: Fever of 101 or Higher, Shortness of breath Instructions: Pneumonia Treatment Allergies/Adverse Reactions: Allergies meperidine HCl [From Demerol] Adverse Reaction (Verified 12/11/17 00:33) Vomiting pneumococcal vaccine Adverse Reaction (Verified 12/11/17 00:33) Upset Stomach tetanus and diphtheria toxoids [tetanus & diphtheria toxoids] Adverse Reaction (Verified 12/11/17 00:33) Upset Stomach Medications to take at Discharge Acarbose [Precose] 100 mg PO TID 07/15/14 Aspirin [Aspirin, Baby] 81 mg PO DAILY@0800 07/15/14 Carvedilol [Coreg (Beta Khoa)] 3.125 mg PO BID 07/15/14 Levothyroxine [Synthroid] 50 mcg PO DAILY 07/15/14 Metformin HCl [Glucophage] 1,000 mg PO BIDCM 07/15/14 Omeprazole [Prilosec] 20 mg PO DAILY 07/15/14 Simvastatin [Zocor] 40 mg PO QHS 07/15/14 glipiZIDE [Glucotrol] 20 mg PO BIDAC 07/15/14 levoFLOXacin tablet [Levaquin tablet] 500 mg PO DAILY #5 tab 12/13/17 The following prescriptions were given: levoFLOXacin tablet [Levaquin tablet] 500 mg PO DAILY #5 tab Primary Care Physician: Frank Young MD [Primary Care Provider] - Please follow up with your Primary Care Physician in: one week Test Results: Test results from this visit will be discussed in further detail at your follow-up appointment, if applicable. When: follow up with your oncologist in 1-2 weeks Proposed Discharge Date: 12/13/17
--- NOTE | 2017-12-13 10:43 | PCM.DC.SUM ---
Discharge Date and Diagnosis Date of Admission: 12/10/17 Date of Discharge: 12/13/17 - Primary Discharge Diagnosis Active and Suspected Problems Sepsis (Acute) CAP (community acquired pneumonia) (Acute) Lung cancer (Acute) Hyponatremia (Acute) Hospital Course and Treatment Imaging Results: Laboratory Tests 12/10/17 12/10/17 12/10/17 21:27 21:27 21:27 WBC 21.7 H RBC 3.66 L Hgb 10.0 L Hct 31.7 L MCV 86.6 MCH 27.3 MCHC 31.5 L RDW 14.2 RDW Differential 43.2 Plt Count 416 MPV 8.7 Immature Gran % (Auto) 0.300 Neut % (Auto) 80.7 H Lymph % (Auto) 10.7 L [place] % (Auto) 6.6 Eos % (Auto) 1.6 Baso % (Auto) 0.1 Absolute Neuts (auto) 17.5 H Absolute Lymphs (auto) 2.32 Total Counted Not Reportable PT 14.7 INR 1.2 APTT 32.7 Sodium 131 L Potassium 3.9 Chloride 94 L Carbon Dioxide 28.0 Anion Gap 9 BUN 16 Creatinine 0.95 Estim Creat Clear Calc 61.33 Est GFR (MDRD) Af Amer 100 Est GFR (MDRD) Non-Af 83 BUN/Creatinine Ratio 16.9 Glucose 304 H Serum Osmolality Lactic Acid Calcium 8.5 Phosphorus 1.7 L Magnesium 1.4 L Total Bilirubin 0.30 AST 13 L ALT 13 L Alkaline Phosphatase 72 Total Protein 6.8 Albumin 2.3 L Globulin 4.5 H Albumin/Globulin Ratio 0.5 L TSH Urine Color Urine Clarity Urine pH Ur Specific [place] Urine Protein Urine Glucose (UA) Urine Ketones Urine Occult Blood Urine Nitrite Urine Bilirubin Urine Urobilinogen Ur Leukocyte Esterase Urine RBC Urine WBC Ur Squamous Epith Cells Urine Bacteria Urine Mucus Urine Osmolality Ur Random Sodium Vancomycin Trough MRSA (PCR) POC Glucose 12/10/17 12/10/17 12/11/17 21:27 22:10 00:52 WBC RBC Hgb Hct MCV MCH MCHC RDW RDW Differential Plt Count MPV Immature Gran % (Auto) Neut % (Auto) Lymph % (Auto) Bull[place] % (Auto) Eos % (Auto) Baso % (Auto) Absolute Neuts (auto) Absolute Lymphs (auto) Total Counted PT INR APTT Sodium Potassium Chloride Carbon Dioxide Anion Gap BUN Creatinine Estim Creat Clear Calc Est GFR (MDRD) Af Amer Est GFR (MDRD) Non-Af BUN/Creatinine Ratio Glucose Serum Osmolality Lactic Acid 2.0 Calcium Phosphorus Magnesium Total Bilirubin AST ALT Alkaline Phosphatase Total Protein Albumin Globulin Albumin/Globulin Ratio TSH Urine Color Yellow Urine Clarity Clear Urine pH 8.0 Ur Specific [place] 1.015 Urine Protein 30 H Urine Glucose (UA) 1000 H Urine Ketones Negative Urine Occult Blood 25 H Urine Nitrite Negative Urine Bilirubin Negative Urine Urobilinogen 4 H Ur Leukocyte Esterase 25 H Urine RBC 5-10 SEEN Urine WBC 0 SEEN Ur Squamous Epith Cells 0-5 SEEN Urine Bacteria 0 SEEN Urine Mucus 0 SEEN Urine Osmolality Ur Random Sodium Vancomycin Trough MRSA (PCR) POC Glucose 248 H 12/11/17 12/11/17 12/11/17 02:10 05:20 05:20 WBC RBC Hgb Hct MCV MCH MCHC RDW RDW Differential Plt Count MPV Immature Gran % (Auto) Neut % (Auto) Lymph % (Auto) [place] % (Auto) Eos % (Auto) Baso % (Auto) Absolute Neuts (auto) Absolute Lymphs (auto) Total Counted PT INR APTT Sodium Potassium Chloride Carbon Dioxide Anion Gap BUN Creatinine Estim Creat Clear Calc Est GFR (MDRD) Af Amer Est GFR (MDRD) Non-Af BUN/Creatinine Ratio Glucose Serum Osmolality Lactic Acid 0.7 Calcium Phosphorus Magnesium Total Bilirubin AST ALT Alkaline Phosphatase Total Protein Albumin Globulin Albumin/Globulin Ratio TSH Urine Color Urine Clarity Urine pH Ur Specific [place] Urine Protein Urine Glucose (UA) Urine Ketones Urine Occult Blood Urine Nitrite Urine Bilirubin Urine Urobilinogen Ur Leukocyte Esterase Urine RBC Urine WBC Ur Squamous Epith Cells Urine Bacteria Urine Mucus Urine Osmolality 238 Ur Random Sodium 47 Vancomycin Trough MRSA (PCR) POC Glucose 12/11/17 12/11/17 12/11/17 06:07 06:07 06:07 WBC RBC Hgb Hct MCV MCH MCHC RDW RDW Differential Plt Count MPV Immature Gran % (Auto) Neut % (Auto) Lymph % (Auto) [place] % (Auto) Eos % (Auto) Baso % (Auto) Absolute Neuts (auto) Absolute Lymphs (auto) Total Counted PT INR APTT Sodium 136 Potassium 3.7 Chloride 99 Carbon Dioxide 29.0 Anion Gap 8 BUN 11 Creatinine 0.80 Estim Creat Clear Calc 74.97 Est GFR (MDRD) Af Amer 122 Est GFR (MDRD) Non-Af 101 BUN/Creatinine Ratio 13.8 Glucose 257 H Serum Osmolality 285 Lactic Acid Calcium 8.0 L Phosphorus Magnesium Total Bilirubin AST ALT Alkaline Phosphatase Total Protein Albumin Globulin Albumin/Globulin Ratio TSH Cancelled 2.58 Urine Color Urine Clarity Urine pH Ur Specific [place] Urine Protein Urine Glucose (UA) Urine Ketones Urine Occult Blood Urine Nitrite Urine Bilirubin Urine Urobilinogen Ur Leukocyte Esterase Urine RBC Urine WBC Ur Squamous Epith Cells Urine Bacteria Urine Mucus Urine Osmolality Ur Random Sodium Vancomycin Trough MRSA (PCR) POC Glucose 12/11/17 12/11/17 12/11/17 06:53 11:20 16:15 WBC RBC Hgb Hct MCV MCH MCHC RDW RDW Differential Plt Count MPV Immature Gran % (Auto) Neut % (Auto) Lymph % (Auto) [place] % (Auto) Eos % (Auto) Baso % (Auto) Absolute Neuts (auto) Absolute Lymphs (auto) Total Counted PT INR APTT Sodium Potassium Chloride Carbon Dioxide Anion Gap BUN Creatinine Estim Creat Clear Calc Est GFR (MDRD) Af Amer Est GFR (MDRD) Non-Af BUN/Creatinine Ratio Glucose Serum Osmolality Lactic Acid Calcium Phosphorus Magnesium Total Bilirubin AST ALT Alkaline Phosphatase Total Protein Albumin Globulin Albumin/Globulin Ratio TSH Urine Color Urine Clarity Urine pH Ur Specific [place] Urine Protein Urine Glucose (UA) Urine Ketones Urine Occult Blood Urine Nitrite Urine Bilirubin Urine Urobilinogen Ur Leukocyte Esterase Urine RBC Urine WBC Ur Squamous Epith Cells Urine Bacteria Urine Mucus Urine Osmolality Ur Random Sodium Vancomycin Trough MRSA (PCR) POC Glucose 206 H 194 H 153 H 12/11/17 12/12/17 12/12/17 21:03 04:23 05:55 WBC 15.0 H RBC 3.03 L Hgb 8.2 L Hct 26.2 L MCV 86.5 MCH 27.1 MCHC 31.3 L RDW 14.9 H RDW Differential 47.2 H Plt Count 289 MPV 8.5 Immature Gran % (Auto) 0.100 Neut % (Auto) 80.1 H Lymph % (Auto) 9.7 L [place] % (Auto) 6.9 Eos % (Auto) 3.1 Baso % (Auto) 0.1 Absolute Neuts (auto) 12.0 H Absolute Lymphs (auto) 1.46 Total Counted Not Reportable PT INR APTT Sodium Potassium Chloride Carbon Dioxide Anion Gap BUN Creatinine Estim Creat Clear Calc Est GFR (MDRD) Af Amer Est GFR (MDRD) Non-Af BUN/Creatinine Ratio Glucose Serum Osmolality Lactic Acid Calcium Phosphorus Magnesium Total Bilirubin AST ALT Alkaline Phosphatase Total Protein Albumin Globulin Albumin/Globulin Ratio TSH Urine Color Urine Clarity Urine pH Ur Specific [place] Urine Protein Urine Glucose (UA) Urine Ketones Urine Occult Blood Urine Nitrite Urine Bilirubin Urine Urobilinogen Ur Leukocyte Esterase Urine RBC Urine WBC Ur Squamous Epith Cells Urine Bacteria Urine Mucus Urine Osmolality Ur Random Sodium Vancomycin Trough MRSA (PCR) POC Glucose 281 H 167 H 12/12/17 12/12/17 12/12/17 05:55 06:51 11:01 WBC RBC Hgb Hct MCV MCH MCHC RDW RDW Differential Plt Count MPV Immature Gran % (Auto) Neut % (Auto) Lymph % (Auto) [place] % (Auto) Eos % (Auto) Baso % (Auto) Absolute Neuts (auto) Absolute Lymphs (auto) Total Counted PT INR APTT Sodium 138 Potassium 3.7 Chloride 104 Carbon Dioxide 25.0 Anion Gap 9 BUN 9 Creatinine 0.74 Estim Creat Clear Calc 59.97 Est GFR (MDRD) Af Amer 134 Est GFR (MDRD) Non-Af 110 BUN/Creatinine Ratio 12.2 Glucose 155 H Serum Osmolality Lactic Acid Calcium 7.4 L Phosphorus Magnesium Total Bilirubin AST ALT Alkaline Phosphatase Total Protein Albumin Globulin Albumin/Globulin Ratio TSH Urine Color Urine Clarity Urine pH Ur Specific [place] Urine Protein Urine Glucose (UA) Urine Ketones Urine Occult Blood Urine Nitrite Urine Bilirubin Urine Urobilinogen Ur Leukocyte Esterase Urine RBC Urine WBC Ur Squamous Epith Cells Urine Bacteria Urine Mucus Urine Osmolality Ur Random Sodium Vancomycin Trough MRSA (PCR) POC Glucose 153 H 238 H 12/12/17 12/12/17 12/12/17 12:30 13:15 16:47 WBC RBC Hgb Hct MCV MCH MCHC RDW RDW Differential Plt Count MPV Immature Gran % (Auto) Neut % (Auto) Lymph % (Auto) [place] % (Auto) Eos % (Auto) Baso % (Auto) Absolute Neuts (auto) Absolute Lymphs (auto) Total Counted PT INR APTT Sodium Potassium Chloride Carbon Dioxide Anion Gap BUN Creatinine Estim Creat Clear Calc Est GFR (MDRD) Af Amer Est GFR (MDRD) Non-Af BUN/Creatinine Ratio Glucose Serum Osmolality Lactic Acid Calcium Phosphorus Magnesium Total Bilirubin AST ALT Alkaline Phosphatase Total Protein Albumin Globulin Albumin/Globulin Ratio TSH Urine Color Urine Clarity Urine pH Ur Specific [place] Urine Protein Urine Glucose (UA) Urine Ketones Urine Occult Blood Urine Nitrite Urine Bilirubin Urine Urobilinogen Ur Leukocyte Esterase Urine RBC Urine WBC Ur Squamous Epith Cells Urine Bacteria Urine Mucus Urine Osmolality Ur Random Sodium Vancomycin Trough 8.7 MRSA (PCR) Negative POC Glucose 111 H 12/12/17 12/13/17 12/13/17 21:50 05:20 06:53 WBC 15.5 H RBC 3.53 L Hgb 9.7 L Hct 30.8 L MCV 87.3 MCH 27.5 MCHC 31.5 L RDW 14.6 RDW Differential 44.7 H Plt Count 357 MPV 8.7 Immature Gran % (Auto) 0.500 Neut % (Auto) 76.1 H Lymph % (Auto) 12.5 L [place] % (Auto) 6.5 Eos % (Auto) 4.1 Baso % (Auto) 0.3 Absolute Neuts (auto) 11.8 H Absolute Lymphs (auto) 1.94 Total Counted Not Reportable PT INR APTT Sodium Potassium Chloride Carbon Dioxide Anion Gap BUN Creatinine Estim Creat Clear Calc Est GFR (MDRD) Af Amer Est GFR (MDRD) Non-Af BUN/Creatinine Ratio Glucose Serum Osmolality Lactic Acid Calcium Phosphorus Magnesium Total Bilirubin AST ALT Alkaline Phosphatase Total Protein Albumin Globulin Albumin/Globulin Ratio TSH Urine Color Urine Clarity Urine pH Ur Specific [place] Urine Protein Urine Glucose (UA) Urine Ketones Urine Occult Blood Urine Nitrite Urine Bilirubin Urine Urobilinogen Ur Leukocyte Esterase Urine RBC Urine WBC Ur Squamous Epith Cells Urine Bacteria Urine Mucus Urine Osmolality Ur Random Sodium Vancomycin Trough MRSA (PCR) POC Glucose 194 H 156 H 12/13/17 11:16 WBC RBC Hgb Hct MCV MCH MCHC RDW RDW Differential Plt Count MPV Immature Gran % (Auto) Neut % (Auto) Lymph % (Auto) [place] % (Auto) Eos % (Auto) Baso % (Auto) Absolute Neuts (auto) Absolute Lymphs (auto) Total Counted PT INR APTT Sodium Potassium Chloride Carbon Dioxide Anion Gap BUN Creatinine Estim Creat Clear Calc Est GFR (MDRD) Af Amer Est GFR (MDRD) Non-Af BUN/Creatinine Ratio Glucose Serum Osmolality Lactic Acid Calcium Phosphorus Magnesium Total Bilirubin AST ALT Alkaline Phosphatase Total Protein Albumin Globulin Albumin/Globulin Ratio TSH Urine Color Urine Clarity Urine pH Ur Specific [place] Urine Protein Urine Glucose (UA) Urine Ketones Urine Occult Blood Urine Nitrite Urine Bilirubin Urine Urobilinogen Ur Leukocyte Esterase Urine RBC Urine WBC Ur Squamous Epith Cells Urine Bacteria Urine Mucus Urine Osmolality Ur Random Sodium Vancomycin Trough MRSA (PCR) POC Glucose 225 H Diagnostic Data Chest X-Ray 12/10/17 21:40 IMPRESSION: Right upper lobe masslike opacity/infiltrate. Right pulmonary interstitial prominence. Electronically Signed: Sean DO Rell at 22:03 EDT Tel [phone], Service support , Operations: None Procedures: None Summary of Care Provided: The patient is a 71 year old M with a history of type 2 diabetes mellitus, metastatic lung cancer, hypertension hyperlipidemia. Patient was admitted with a complaint of worsening confusion and fever for days duration. He also had a worsening productive cough which had become more productive. Patient was febrile, and tachycardic on admission. He was admitted and managed for sepsis due to post obstructive pneumonia and chest x-ray done showed a right upper lobe masslike opacity versus infiltrate. He was managed for possible postobstructive pneumonia and started on IV vancomycin and Zosyn. Blood cultures and sputum cultures were taken. Was also managed for hypotonic, hypovolemic hyponatremia his sodium improved to 136 at time of discharge. Influenza screen was negative and Legionella and strep antigens were also negative. Blood and urine cultures were negative. Patient's temperature settled and was discharged home on p.o. levofloxacin 500 mg daily for 5 days. His follow-up with his primary care doctor and also to follow-up with his oncologist. Patient was seen and examined prior to discharge. He felt well and had no complaints. He was saturating well on room air and denied any fever or chills, cough had improved he denied any chest pain, abdominal pain, diarrhea vomiting. 12 point review of systems is otherwise negative. Labs and vitals reviewed. o/e: Vital Signs Height 5 ft 7 in Weight: 139 lb 15.896 oz Weight in Pounds 140.0 lbs Pulse Ox 96 Temperature 98.9 F Pulse Rate 84 Respiratory Rate 18 Blood Pressure 130/65 Blood Pressure Position Semi-Fowlers [] General: Alert, Oriented x3, Cooperative HEENT: Atraumatic, PERRLA, EOMI, Normocephalic Neck: Supple, No JVD, Negative Carotid Bruits Lungs: Clear to auscultation, No rhonchi, No wheeze, No rales, Diminished Cardiovascular: Regular rate, Regular Rhythm, Normal S1, Normal S2, No murmurs Abdomen: Bowel Sounds Present, Soft, Non Tender, Non-Distended Extremities: No edema, Capillary Refill Less than 3 Seconds Skin: No rashes, No breakdown Musculoskeletal: No Tenderness to Palpation of Joints or Extremities Neurological: Cranial nerves II-XII grossly intact Psych/Mental Status: Normal Affect, Appropriate Plan as stated above. Discharge Diet: 2000 mg Sodium Diet Discharge Activity: Return to Normal Activity Weight Bearing Status: Weight bearing as tolerated Call your doctor if you observe: Fever of 101 or Higher, Shortness of breath Home Medications: Medications to take at Discharge Acarbose [Precose] 100 mg PO TID 07/15/14 Aspirin [Aspirin, Baby] 81 mg PO DAILY@0800 07/15/14 Carvedilol [Coreg (Beta Khoa)] 3.125 mg PO BID 07/15/14 Levothyroxine [Synthroid] 50 mcg PO DAILY 07/15/14 Metformin HCl [Glucophage] 1,000 mg PO BIDCM 07/15/14 Omeprazole [Prilosec] 20 mg PO DAILY 07/15/14 Simvastatin [Zocor] 40 mg PO QHS 07/15/14 glipiZIDE [Glucotrol] 20 mg PO BIDAC 07/15/14 levoFLOXacin tablet [Levaquin tablet] 500 mg PO DAILY #5 tab 12/13/17 Following Prescrptions Were Given to Patient: levoFLOXacin tablet [Levaquin tablet] 500 mg PO DAILY #5 tab Primary Care Physician: Frank Young MD [Primary Care Provider] - Please follow up with your Primary Care Physician in: one week When: follow up with your oncologist in 1-2 weeks Patient Instructions: Pneumonia Treatment Disposition: Home Minutes spent on discharge:: 40 Patient Condition:: Stable Medical Necessity - Tobacco Use Smoking Status: Former smoker Meaningful Use Info Meaningful Use Diagnoses (Choose all that apply): None applicable Code Visit Inpatient E&M: 98776 Disch Hosp
--- NOTE | 2017-12-13 11:07 | CASEMGMT ---
Face to Face with patient for initial transition planning/care coordination assessment. RN CM introduced self and role at [facility], pt voices understanding and consents to assessment at this time. Pt is ambulating with RN for ambulatory pulse in no distress at this time. Pt is A/OX4 at this time and answers questions appropriately. Care providers, pharmacy, and demographics verified. See attached link. Pt voices no further concerns/needs at this time. Advised pt to ask for CM if any further questions/concerns/needs arise, voices understanding. Pt does not qualify for home oxygen at this time. PLAN: Home [place] JODY HUYNH
[2017-12-13 11:41] LABS: Bedside Glucose 225 mg/dL (70-110)
--- NOTE | 2017-12-14 14:37 | CASEMGMT ---
JODY HUYNH DC CALL Discharge Date 12/13/17 LACE 3 Disposition: Home Intro role of CM to patient via phone.No questions voiced re: DC instructions, f/u or prescriptions. Reviewed antibiotic dosing. No suggestions for care improvement, pt states he was treated very well. JODY HUYNH thanked pt for using [facility]. Tyler PALMER RN ACM.
== END 2017-12-13 12:15 | disposition home or self-care (01) | DRG 871 ==
LOC: ED 22:25 → PCU 23:50
PROVIDERS: Internal Medicine; Admitting Provider Internal Medicine; Emergency Provider Emergency Medicine; Family Provider Family Medicine; PCP Family Medicine; Visit Provider Student in an Organized Health Care Education/Training Program
DX: A41.9 Sepsis, unspecified organism (principal); J18.9 Pneumonia, unspecified organism; C34.90 Malignant neoplasm of unspecified part of unspecified bronchus or lung; E87.1 Hypo-osmolality and hyponatremia; C79.9 Secondary malignant neoplasm of unspecified site; I10 Essential (primary) hypertension; E78.5 Hyperlipidemia, unspecified; Z87.891 Personal history of nicotine dependence
CPT/HCPCS: 36415; 71046; 80048; 80053; 80202; 81001; 82962; 83605; 83735; 83930; 83935; 84100; 84300; 84443; 85025; 85610; 85730; 87040; 87070; 87086; 87205; 87449; 87641; 87804; 87880; 94640; 94762; 97161; 97165; 97530; 97802; 99283; J2185; J7030; J7040; J7050; A4216

== ENCOUNTER 2017-12-21 16:17 | Emergency (ER) | payer MEDICARE, OTHER, SELFPAY ==
[2017-12-21 16:18] VITALS: BP 114/63; PULSE 81; RESP 17; TEMP 37.1; O2SAT 98; BMI 22.1
--- NOTE | 2017-12-21 16:26 | EKG12_ITS ---
Test Reason : CP Blood Pressure : / mmHG Vent. Rate : 076 BPM Atrial Rate : 076 BPM P-R Int : 178 ms QRS Dur : 080 ms QT Int : 386 ms P-R-T Axes : 032 045 052 degrees QTc Int : 434 ms Sinus rhythm with frequent Premature ventricular complexes Otherwise normal ECG Confirmed by TIFFANY CONTRERAS, CLAIRE ([id number]), publications editor NAS BARBER ([id number]) on 12/23/2017 1:44:05 PM Referred By: FANNY Confirmed By:CLAIRE ALLEN MD
--- NOTE | 2017-12-21 16:37 | RAD_ITS ---
STUDY: X-RAY CHEST REASON FOR EXAM: Male, 72 years old. Source of breath and fatigue TECHNIQUE: PA and lateral views of the chest. COMPARISON: 12/10/2017 FINDINGS: Persistent right upper lobe infiltrate with lucency suggesting cavitary lesion. Further evaluation with chest CT is recommended. The left lung is clear and expanded. There is no demonstrated pleural abnormality. Normal size heart. Normal mediastinum and joe. Normal visualized pulmonary arteries. Normal visualized aortic arch and descending thoracic aorta. Normal visualized thoracic spine. Normal visualized ribs, clavicles, and shoulders. There is no demonstrated abnormality of the visualized soft tissue structures of the upper abdomen. RAD/Chest PA and Lateral IMPRESSION: Persistent right upper lobe pneumonia which appears to contain a cavitary component. Further evaluation with chest CT recommended. No demonstrated effusion, left lung is clear. Electronically Signed: Vinh Matias MD at 17:39 EDT , Service support ,
[2017-12-21 16:56] LABS: Absolute Lymphocyte Count 1.46 X10^3/ul (0.83-4.51); Absolute Neutrophil Count 19.9 X10^3/uL (2.0-7.7); Basophil# 0.01 X10^3/uL; Eosinophil# 0.59 X10^3/uL; Eosinophils% 2.5 % (0-5); Hematocrit 32.9 % (40-54); Hemoglobin 10.1 g/dl (13.0-16.5); Lymphocyte # 1.46 X10^3/ul (4.0); Lymphocyte % 6.3 % (19-41); Mean Corp Hgb Conc 30.7 g/gl (32-36); Mean Corpuscular Hgb 26.4 pg (27.0-32.0); Mean Corpuscular Volume 85.9 fL (80-94); Mean Platelet Vol. 8.6 fl (6.2-12.0); Monocyte# 1.22 X10^3/uL; Monocyte% 5.2 % (0-10); Neutrophil # 19.85 X10^3/uL (2.7-7.7); Neutrophil % 85.4 % (47-70); Platelet Count 427 K/mm3 (150-450); RBC Distribution Width CV 15.4 % (11.6-14.6); RBC Distribution Width SD 47.3 fl (35.1-43.9); Red Blood Count 3.83 M/mm3 (4.6-6.2); White Blood Count 23.3 K/mm3 (4.4-11.0)
[2017-12-21 16:57] LABS: POSITIVE COUNT NO; POSITIVE DIFFERENTIAL NO; POSITIVE MORPHOLOGY NO
[2017-12-21 17:08] LABS: Anion Gap 10 (5-15); BUN 17 mg/dL (7-18); BUN/Creat Ratio 19.8 RATIO (10-20); Calcium,Total 7.9 mg/dL (8.5-10.1); Chloride 95 mmol/L (98-107); Creatinine, Serum 0.86 mg/dL (0.70-1.30); EST Glomerular Filtration Rate 93 mL/min (>60); Est Glom Filt Rate - Afr Amer 112 mL/min (>60); Estimated Creatinine Clearance 69.47 ml/min; Glucose 394 mg/dL (74-106); Potassium 3.9 mmol/L (3.5-5.1); Sodium Level 132 mmol/L (136-145)
--- NOTE | 2017-12-21 18:48 | ED.VISSUMM ---
- ER Visit Summary Date of Service: 12/21/17 Chief Complaint: Shortness of breath History of Present Illness: The patient is a 72 M presenting for evaluation secondary shortness breath. Patient has a underlying history lung cancer he is getting immunotherapy by Dr. Chris. Patient apparently had a cough about 2 weeks ago was admitted a week ago was placed on a course of antibiotics and was discharged. He had significant improvement, but over the course of the last day or so he has had worsening of his symptoms again. Associated with nonproductive cough some chest aching. He also endorses that he has been having some wheezing associated with this. Patient was seen at a outside facility he had laboratory studies drawn and told that he had white blood cell counts in the 30s which was up from his baseline and he was recommended to come to the emergency department. Physical Examination: Thin age-appropriate male no acute distress normal vital signs. Head normocephalic. Moist mucous membranes. Heart regular rate and rhythm. Lungs clear. Abdomen soft nontender. Lungs sounds show evidence of no rhonchi rales or wheezes and no respiratory distress no retractions. Remainder physical otherwise unremarkable. Test Results: Chest x-ray shows possible cavitary lesion in the right upper lobe. CBC shows leukocytosis of 22, chemistry unremarkable, EKG shows PVCs with a rate of [address] segments normal T waves Emergency Department Course and Treatment: Patient presented with reemergence of a cough after recent admission for possible pneumonia in the setting of lung cancer. Patient's chest x-ray really does not look that much changed from his prior x-ray, and his lab work does not look consistent with severe sepsis but he does have a leukocytosis. I discussed patient's case with his oncologist, we are in agreement that given the patient's normal oxygen status and general well appearance that he can be discharged with an outpatient course of Levaquin. He will follow-up with oncology. All questions were answered and the patient was discharged. Disposition: Discharge Impression: 1. Bronchitis 2. Leukocytosis 3. Lung cancer This note was generated with [employer] dictation software. It may contain incorrect words, spelling, and punctuation that were not noted in review of the chart prior to signing ED Disposition - Plan for ED Patient: Disposition: Home or Assisted Living Chief Complaint: Shortness of Breath Diagnosis: Bronchitis Instructions: ED Upper Resp Infec Abx Tx Prescriptions: Levofloxacin [Levaquin] 750 mg PO DAILY #7 tab Referrals: Feng Chris DO [STAFF PHYSICIAN] - 3-5 Days
[2017-12-21 18:56] VITALS: BP 114/72; PULSE 74; RESP 18; TEMP 36.6; O2SAT 97
[2017-12-21] MEDS: levoFLOXacin 750 MG Tablet PO (18:56)
== END 2017-12-21 18:58 | disposition home or self-care (01) ==
PROVIDERS: Emergency Provider Emergency Medicine; Family Provider Family Medicine; PCP Family Medicine
DX: J40 Bronchitis, not specified as acute or chronic (principal); D72.829 Elevated white blood cell count, unspecified; C34.90 Malignant neoplasm of unspecified part of unspecified bronchus or lung; I49.3 Ventricular premature depolarization; Z79.82 Long term (current) use of aspirin; Z79.84 Long term (current) use of oral hypoglycemic drugs; Z79.899 Other long term (current) drug therapy
CPT/HCPCS: 71046; 80048; 85025; 93005; 99283; A4216

== ENCOUNTER → 2019-02-06 12:40 | Outpatient (CLI) | payer MEDICARE, OTHER, SELFPAY ==
--- NOTE | 2019-02-06 13:02 | US_ITS ---
STUDY: SUPERFICIAL ULTRASOUND - PRETHORACENTESIS REASON FOR EXAM: Male, 73 years old. Thoracentesis TECHNIQUE: A superficial ultrasound was performed with real-time and static jeffrey-scale imaging. COMPARISON: None. FINDINGS: No right-sided pleural fluid collection is identified. US/Chest IMPRESSION: By history thoracentesis was not performed. No right-sided pleural fluid collection is identified. Electronically Signed: Michael Hsu MD at 16:12 EST , Service support ,
[2019-02-06 13:09] LABS: Prothrombin Time (Protime)PT. 12.6 SECONDS (11.7-14.9)
[2019-02-06 13:56] VITALS: BP 109/69; PULSE 81; RESP 16; O2SAT 97
== END ==
PROVIDERS: Family Provider Family Medicine; PCP Family Medicine; Referring Provider Internal Medicine Hematology & Oncology; Visit Provider Internal Medicine Hematology & Oncology
DX: C34.11 Malignant neoplasm of upper lobe, right bronchus or lung (principal); J90 Pleural effusion, not elsewhere classified
CPT/HCPCS: 36415; 76604; 85610

== ENCOUNTER 2019-03-25 13:26 | Emergency (ER) | payer MEDICARE, OTHER, SELFPAY ==
[2019-03-25] VITALS (10 sets, daily range): BP systolic 98–118; BP diastolic 63–79; PULSE 108–135; RESP 21–32; TEMP 36.9–37.3; O2SAT 80–98; BMI 17.9
--- NOTE | 2019-03-25 13:56 | RAD_ITS ---
STUDY: X-RAY CHEST REASON FOR EXAM: Male, 73 years old. Increasing SOB -- pt has lung CA TECHNIQUE: AP upright portable view. COMPARISON: 12/21/2017. FINDINGS: Pulmonary hypoinflation. Increased atelectases in the right upper lobe and increased consolidation of the right upper lobe near the right hilum. Increased prominence of the pulmonary interstitial lung markings. Right apical pleural capping. Normal size heart. Right mediastinal shift. Elevation of the right hilum. Normal left hilum. Normal visualized pulmonary arteries. Normal visualized aortic arch and descending thoracic aorta. Normal visualized thoracic spine. Normal visualized ribs, clavicles, and shoulders. There is no demonstrated abnormality of the visualized soft tissue structures of the upper abdomen. RAD/Chest 1 View (Portable) IMPRESSION: 1. Increased atelectases and consolidation in the right upper lobe causing tracheal shift towards the right upper lobe atelectases. 2. Increased prominence of the interstitial lung markings may be due to lymphangitic spread of neoplasm. COMMENT: Baseline CT chest will be helpful for further evaluation. Electronically Signed: Moe Hollingsworth MD at 14:28 EST , Service support ,
--- NOTE | 2019-03-25 13:56 | EKG12_ITS ---
Test Reason : SOB Blood Pressure : / mmHG Vent. Rate : 131 BPM Atrial Rate : 131 BPM P-R Int : 164 ms QRS Dur : 078 ms QT Int : 278 ms P-R-T Axes : 031 000 039 degrees QTc Int : 410 ms Sinus tachycardia Otherwise normal ECG Confirmed by TIFFANY CONTRERAS, CLAIRE ([id number]), editor publications NAS BARBER ([id number]) on 03/27/2019 1:49:58 PM Referred By: Confirmed By:CLAIRE ALLEN MD
[2019-03-25 14:30] LABS: Hematocrit 33.8 % (40-54); Hemoglobin 10.8 g/dL (13.0-16.5); Mean Corpuscular Hgb 29.9 pg (27.0-32.0); Mean Corpuscular Volume 93.6 fL (80-94); Mean Platelet Vol. 9.2 fl (6.2-12.0); POSITIVE COUNT YES; POSITIVE MORPHOLOGY YES; Platelet Count 342 K/mm3 (150-450); RBC Distribution Width SD 53.9 fl (35.1-43.9); Red Blood Count 3.61 M/mm3 (4.6-6.2); White Blood Count 9.1 K/mm3 (4.4-11.0)
--- NOTE | 2019-03-25 14:31 | ED.DCSUM_ITS ---
- ER Visit Summary Date of Service: 03/25/19 Chief Complaint: Shortness of breath and cough History of Present Illness: The patient is a 73 M who presents with shortness of breath and cough that has been getting worse over the past few days. Patient states that breathing became worse today. Patient denies any sputum production. Patient denies any fevers or chills. Patient denies any chest pain. Patient has a history of lung cancer with metastases to the liver. Patient is DNR comfort care. Physical Examination: Vital signs show a tachycardia of 135 and a tachypnea of 32. Pulse oximeter is 88% on nonrebreather mask. Patient is afebrile. Blood pressure is normal. Oral mucosa is pink and dry. Neck is supple. Trachea is midline. There is no JVD. Heart was regular and tachycardic. Lungs are diminished bilaterally. There is adequate respiratory effort. There are no retractions noted. Abdomen is soft. Bowel sounds are normal. There is mild upper abdominal tenderness. There is no rebound or guarding noted. Cranial nerves II through XII are intact. There are no focal motor or sensory deficits noted. Test Results: CBC shows a mild anemia with a hemoglobin of 10.8 and hematocrit 33.8. Basic metabolic profile showed a mild hyponatremia of 133 and chloride of 93. CO2 is slightly elevated at 33. Glucose was 191. INR is 1.4. Lactate was 4.0. Portable chest x-ray shows atelectasis and consolidation of the right upper lobe. Blood cultures were ordered and are pending. EKG showed sinus tachycardia with a rate of 131. There are no acute ST or T wave changes. Emergency Department Course and Treatment: Patient was given IV fluids here. Patient was started on Levaquin and vancomycin. Patient was given a DuoNeb aerosol. Patient was resting comfortably on reevaluation. Case was discussed with the hospitalist. He will be in to evaluate the patient and admit the patient to the hospital. Disposition: Admit to hospital Impression: 1. Healthcare associated pneumonia 2. Severe sepsis 3. Hypoxemia This note was generated with [email or web address] software. It may contain incorrect words, spelling, and punctuation that were not noted in review of the chart prior to signing ED Disposition - Plan for ED Patient: Disposition: Acute Care Hospital [facility] Diagnosis: Healthcare-associated pneumonia, Severe sepsis, Hypoxemia Referrals: Frank Young MD [Primary Care Provider] -
[2019-03-25 14:32] LABS: Differential Indicated MANUAL DIFF
[2019-03-25 14:39] LABS: International Normalized Ratio 1.4; Prothrombin Time (Protime)PT. 17.3 SECONDS (11.7-14.9)
[2019-03-25 14:40] LABS: ALB/GLOB Ratio 0.5 RATIO (0.9-2.4); AST(SGOT) 53 U/L (15-37); Alanine Aminotransfer ALT/SGPT 30 U/L (16-61); Alkaline Phosphatase 158 U/L (45-117); Anion Gap 7 (5-15); BUN 12 mg/dL (7-18); Calcium,Total 8.9 mg/dL (8.5-10.1); Chloride 93 mmol/L (98-107); Creatinine, Serum 0.92 mg/dL (0.70-1.30); EST Glomerular Filtration Rate 85 mL/min (>60); Est Glom Filt Rate - Afr Amer 103 mL/min (>60); Estimated Creatinine Clearance 51.81 ml/min; Globulin 4.4 g/dL (2.2-4.2); Glucose 191 mg/dL (74-106); Partial Thromboplast Time 28.2 Seconds (24.1-36.2); Potassium 3.9 mmol/L (3.5-5.1); Protein, Total 6.4 g/dL (6.4-8.2); Sodium Level 133 mmol/L (136-145)
[2019-03-25 14:52] LABS: Lymphocyte 10 % (19-41); Monocyte 4 % (0-10); Neutrophil-Band 4 % (0-5); Neutrophil-Segmented 82 % (47-70); Nucleated Red Bld Cells,Manual 1 % (0-5); Total Cells Counted 100 (MANUAL DIFF)
[2019-03-25 14:53] LABS: Platelet Estimate ADEQUATE (ADEQ); Polychromasia 1+; Red Cell Morphology N CYTIC NORMAL (NORM C&C)
[2019-03-25 14:54] LABS: Absolute Lymphocyte Count 0.91 X10^3/uL (0.83-4.51); Absolute Neutrophil Count 7.8 X10^3/uL (2.0-7.7)
[2019-03-25] MEDS: 0.9% Normal Saline 1,000 ML 999 ML IV ×2 (15:27→17:26)
[2019-03-25] MEDS: levoFLOXacin IV 750 MG/150 ML BAG 150 MG IV (15:28)
[2019-03-25] MEDS: Ipratropium/Albuterol Sulfate 3 ML AMPUL.NEB INHALATION (15:50)
--- NOTE | 2019-03-25 16:27 | ED.RN ---
PER DR HAYNES, HOLD PT IN THE ER UNTIL HEAR FROM HOSPICE
[2019-03-25 16:31] LABS: Bacteria 0 SEEN /hpf (None Seen); Mucous, Urine 0 SEEN /hpf (<or=2+); Red Blood Cells-Urine 0 SEEN /hpf (0-5); Squamous Epithelial Cells - UA 0 SEEN /hpf (0-5); White Blood Cells 0 SEEN /hpf (0-5)
--- NOTE | 2019-03-25 16:41 | NURSING ---
TALKED TO GERRY FROM [facility] SAID SHE WILL HAVE A NURSE HERE WITHIN AN HOUR TO AN HOUR AND A HALF TO EVALUATE THE PATIENT
[2019-03-25 16:47] LABS: Color, Urine Yellow (Yellow); Glucose, Dipstick 1000 mg/dl (Normal); Ketone-Dipstick 5 mg/dl (Negative); Leukocyte Esterase-Dipstick Negative /ul (Negative); Nitrite-Dipstick Negative (Negative); Occult Blood-Urine Negative /ul (Negative); Protein-Dipstick 100 mg/dl (Negative); Urine Bilirubin Dipstick Negative (Negative); Urine Clarity Sl. Cloudy (Clear); Urine Urobilinogen Normal (Normal)
--- NOTE | 2019-03-25 16:57 | HP.PCM_ITS ---
Problem List (1) Healthcare-associated pneumonia Status: Acute (2) Severe sepsis Status: Inactive (3) Hypoxemia Status: Acute (4) Lung metastases Status: Chronic (5) Cancer of upper lobe of right lung Status: Chronic (6) Bone metastases Status: Chronic (7) Regional lymph node metastasis present Status: Chronic (8) CAP (community acquired pneumonia) Status: Acute (9) Hyponatremia Status: Acute History of Present Illness Date of Admission: 03/25/19 Chief Complaint: Shortness of breath and cough for last 2 to 3 weeks The patient is a 73 year old M with history of poorly differentiated squamous cell lung cancer as per EPS in November 2017, large right upper lobe mass including hilar and mediastinal adenopathy with metastasis to right acetabulum, primary oncologist Dr. Chris, proctologist Dr. Dover [facility] for extreme shortness of breath, cough over past few weeks. Prior to that patient has been [facility] for about 2 weeks and was discharged to SNF about 3 days ago. In ED, patient was found tachycardic, heart rate 130 per night, blood pressure 98/79, respiratory rate 26 pulse ox 93% on 15 L of oxygen. Chest x-ray done shows complete whiteout of right lung with increased atelectasis and consolidation in the right upper lobe causing tracheal shift towards the right upper lobe atelectasis with interstitial infiltrate in left lung. Lactic acid is 4.0 therefore meets the criteria for septic shock but family wants DNR comfort care and IV fluid and antibiotics: Therefore we will not follow strict criteria of septic shock as per patient wish. As per [facility] paper to which patient and her daughter, power of employee benefits attorney for health, Ms. Mccarty agrees to be DO NOT RESUSCITATE Comfort Care Clinical Impression(s) from Imaging Studies Chest X-Ray 03/25/19 13:56 IMPRESSION: 1. Increased atelectases and consolidation in the right upper lobe causing tracheal shift towards the right upper lobe atelectases. 2. Increased prominence of the interstitial lung markings may be due to lymphangitic spread of neoplasm. Past Medical History Past Medical History (Chronic Problems): Chronic Problems (Last Updated 08/30/18 @ 16:33 by Radha Agarwal) Lung metastases (Chronic) Cancer of upper lobe of right lung (Chronic) Bone metastases (Chronic) Regional lymph node metastasis present (Chronic) Medical History: Medical History (Last Updated 08/30/18 @ 16:33 by Radha Agarwal) Anemia D64.9 Dementia F03.90 Hyperlipidemia E78.5 Iron deficiency E61.1 Lung cancer C34.90 total knee replacement bilateral 2009 Allergies meperidine HCl [From Demerol] Adverse Reaction (Severe, Verified 03/25/19 13:57) Vomiting pneumococcal vaccine Adverse Reaction (Intermediate, Verified 03/25/19 13:57) Upset Stomach tetanus and diphtheria toxoids [tetanus & diphtheria toxoids] Adverse Reaction (Intermediate, Verified 03/25/19 13:57) Upset Stomach Home Medications: Ambulatory Orders Medication Instructions Recorded Carvedilol [Coreg (Beta Khoa)] 3.125 mg PO BID 07/15/14 Levothyroxine [Synthroid] 100 mcg PO DAILY 07/15/14 Omeprazole [Prilosec] 20 mg PO DAILY 07/15/14 Simvastatin [Zocor] 40 mg PO QHS 07/15/14 Insulin Human 70/30 [Novolog Mix 0 units SQ TID 09/07/18 70-30 Flexpen Syrn] Acetaminophen 500 mg PO Q8H PRN PRN 03/25/19 Benzonatate 100 mg PO TID PRN PRN 03/25/19 Bisacodyl 10 mg KS DAILY PRN PRN 03/25/19 Fluticasone Furoate [Arnuity 200 mcg IH DAILY 03/25/19 Ellipta] Hydrocodone Bit/Homatrop Me-Br 5 ml PO Q6H PRN PRN 03/25/19 [Hydrocodone-Homatropine Syrup] Ipratropium/Albuterol Sulfate 3 ml IH Q6H PRN PRN 03/25/19 [Iprat-Albut 0.5-3(2.5) mg/3 ml] Magnesium Hydroxide [Milk Of 30 ml PO DAILY PRN PRN 03/25/19 Magnesia] Magnesium Oxide [Mag-Oxide] 400 mg PO TID 03/25/19 Mineral Oil 1 bottle KS DAILY PRN PRN 03/25/19 Promethazine HCl 25 mg PO Q6H PRN PRN 03/25/19 Rivaroxaban [Xarelto] 20 mg PO DAILY 03/25/19 Surgical History: Surgical History (Last Reviewed 09/07/18 @ 11:07 by Radha Agarwal) History of appendectomy Z90.49 Surgical History: no surgical history Psychiatric History: No pertinent psych hx Smoking Status: Former smoker Tobacco Use: Cigarettes - *Family History Maternal Family History: Family History (Last Reviewed 09/07/18 @ 11:07 by Radha Agarwal) Mother Emphysema lung Father CVA (cerebral vascular accident) Diabetes Grandmother Diabetes History Items: No pertinent history Review of Systems Constitutional: Reports: Anorexia. Denies: Chills, Fever HEENT: Reports: Difficulty Hearing Gastrointestinal: Denies: Abdominal Pain, Nausea, Vomiting Genitourinary: Reports: Incontinence. Denies: Dysuria, Frequency, Hesitancy Musculoskeletal: Reports: Back Pain, Joint Pain Neurological: Reports: Balance problems, - - Generalized weakness Psychiatric: Reports: Anxiety, Depression Unable to obtain accurate/complete ROS d/t: Patient is very short of breath, lethargic and not able to answer clearly VTE Information - Inpt Only VTE Present on Admission: No VTE Mechan Device Prophylaxis: None VTE Pharm Prophylaxis ordered?: Yes Patient Problems: Active and Suspected Problems (Last Updated 08/30/18 @ 16:33 by Radha Agarwal) Healthcare-associated pneumonia (Acute) Hypoxemia (Acute) - Physical Exam Vitals/I&O's: Vital Signs Temp Pulse Resp BP Pulse Ox 98.4 F 131 H 21 H 105/72 98 03/25/19 16:14 03/25/19 16:14 03/25/19 16:14 03/25/19 16:14 03/25/19 16:14 Oxygen Flow Rate (L/min) 15 Oxygen Delivery Method Room Air Weight: 114 lb 10.246 oz Body Mass Index (BMI) 17.9 Intake and Output for Last 24 Hours 03/23/19 03/24/19 03/25/19 23:59 23:59 23:59 Intake Total 16.65 / 16.65 Balance 16.65 / 16.65 General: Cooperative, Disoriented - Disoriented to time but oriented to place and person, Lethargic HEENT: Atraumatic, PERRLA, EOMI, Normocephalic Oral: No Gingival or Mucosal Lesions/ Ulcerations, Dry Mucosa Neck: Supple, No JVD, Negative Carotid Bruits Lungs: Diminished - Air entry severely diminished on the right lung. Trachea is pulled to the right side., Rhonchi, Short of Breath, Tachypneic, Using Accessory Muscles, Wheezes Cardiovascular: Regular Rhythm, Normal S1, Normal S2, No murmurs, Tachycardic Abdomen: Bowel Sounds Present, Soft, Non Tender, Non-Distended Extremities: No edema, Capillary Refill Less than 3 Seconds Skin: No rashes, No breakdown Musculoskeletal: No Tenderness to Palpation of Joints or Extremities Neurological: Cranial nerves II-XII grossly intact, Deep Tendon Reflexes 2+/4 and Symmetrical, Neuro grossly intact Psych/Mental Status: Normal Affect, Appropriate Laboratory Results 03/25/19 13:48: WBC 9.1, RBC 3.61 L, Hgb 10.8 L, Hct 33.8 L, MCV 93.6, MCH 29.9, MCHC 32.0, RDW Std Deviation 53.9 H, RDW Coeff of Reggie 16.0 H, Plt Count 342, MPV 9.2, Neut % (Auto) Not Reportable, Absolute Neuts (auto) 7.8 H, Absolute Lymphs (auto) 0.91, Total Counted 100, Neutrophils % (Manual) 82 H, Band Neutrophils % 4, Lymphocytes % (Manual) 10 L, Monocytes % (Manual) 4, Nucleated RBCs/100 WBC 1, Diff Path Review August, Platelet Estimate ADEQUATE, RBC Morphology N CYTIC, Polychromasia 1+ 03/25/19 13:48: PT 17.3 H, INR 1.4, APTT 28.2 03/25/19 13:48: Sodium 133 L, Potassium 3.9, Chloride 93 L, Carbon Dioxide 33.0 H, Anion Gap 7, BUN 12, Creatinine 0.92, Estim Creat Clear Calc 51.81, Est GFR (MDRD) Af Amer 103, Est GFR (MDRD) Non-Af 85, BUN/Creatinine Ratio 13.0, Glucose 191 H, Calcium 8.9, Total Bilirubin 0.30, AST 53 H, ALT 30, Alkaline Phosphatase 158 H, Total Protein 6.4, Albumin 2.0 L, Globulin 4.4 H, Albumin/Globulin Ratio 0.5 L 03/25/19 13:48: Lactic Acid 4.0 H* 03/25/19 16:15: Urine Color Yellow, Urine Clarity Sl. Cloudy, Urine pH 7.0, Ur Specific [place] 1.010, Urine Protein 100 H, Urine Glucose (UA) 1000 H, Urine Ketones 5 H, Urine Occult Blood Negative, Urine Nitrite Negative, Urine Bilirubin Negative, Urine Urobilinogen Normal, Ur Leukocyte Esterase Negative, Urine RBC Pending, Urine WBC Pending, Ur Squamous Epith Cells Pending, Urine Bacteria Pending, Urine Mucus Pending Assessment/Plan All Active Problems (Last Updated 08/30/18 @ 16:33 by Radha Agarwal) Healthcare-associated pneumonia (Acute) Hypoxemia (Acute) CAP (community acquired pneumonia) (Acute) Hyponatremia (Acute) The patient is a 73 year old M with history of poorly differentiated squamous cell lung cancer as per EBUS in November 2017, large right upper lobe mass including hilar and mediastinal adenopathy with metastasis to right acetabulum, primary oncologist Dr. Chris, proctologist Dr. Dover [facility] for extreme shortness of breath, cough over past few weeks In ED, patient was found tachycardic, heart rate 130 per night, blood pressure 98/79, respiratory rate 26 pulse ox 93% on 15 L of oxygen. Chest x-ray done shows complete whiteout of right lung with increased atelectasis and consolidation in the right upper lobe causing tracheal shift towards the right upper lobe atelectasis with interstitial infiltrate in left lung. Lactic acid is 4.0 1. Acute on chronic hypoxic respiratory failure secondary to multifocal multilobar pneumonia with metastatic lung cancer: Patient is being admitted on MedSurg floor as per the request with family for continuation of IV antibiotic and IV fluid. Palliative care was consulted as per family request. I called the hospice nurse and they will come and evaluate the patient in the ER. 2. Septic shock mostly secondary to bilateral multilobar/multifocal right lung and left lung with possibility of postobstructive pneumonia: Patient meets the criteria for septic shock but family wants DNR comfort care and IV fluid and antibiotics: Therefore we will not follow strict criteria of septic shock as per patient wish. Started on IV vancomycin and Zosyn. Blood cultures x2, urine culture ordered by ER. Urinary antigens, MRSA nasal screen and respiratory panel ordered. 3. Metastatic NSCLC (poorly differentiated squamous cell cancer) with mets to bone: As per EBUS in November 2017, large right upper lobe mass including hilar and mediastinal adenopathy with metastasis to right acetabulum: Patient primary oncologist is Dr. Matias and proctologist Dr. Dover in clinic. Patient also had seen Dr. Mcnair as a second opinion in September 2018. As per the history he had a PET CT scan in November 2017 which consistent with malignant process in right upper lobe, metastatic mediastinal and hilar adenopathy left lung nodule and bone metastasis. Brain MRI did not show metastatic disease. 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 Had palliative radiation to painful bone mets and right upper lobe. As per the family request, hospice care consulted in ER by me. The hospice will see the patient in ER. 4. History of recurrent pneumonia, hyponatremia, poor functional capacity with severe protein calorie malnutrition: Poor prognosis and possible source survival was explained to the patient's power of employee benefits attorney. DVT prophylaxis: Lovenox 40 mg subcu daily Advance directive/CODE STATUS/goal of life: Patient does not want artificial life support including intubation, tube feed, ventilator and/chest compression, BiPAP, central line or vasopressor.. Patient is DNR CC. Hospice is consulted. Patient is hospice appropriate. Total time spent in [id number] encounter in discussion of advanced directive 18 minutes. Laboratory Results 03/25/19 13:48: WBC 9.1, RBC 3.61 L, Hgb 10.8 L, Hct 33.8 L, MCV 93.6, MCH 29.9, MCHC 32.0, RDW Std Deviation 53.9 H, RDW Coeff of Reggie 16.0 H, Plt Count 342, MPV 9.2, Neut % (Auto) Not Reportable, Absolute Neuts (auto) 7.8 H, Absolute Lymphs (auto) 0.91, Total Counted 100, Neutrophils % (Manual) 82 H, Band Neutrophils % 4, Lymphocytes % (Manual) 10 L, Monocytes % (Manual) 4, Nucleated RBCs/100 WBC 1, Diff Path Review August, Platelet Estimate ADEQUATE, RBC Morphology N CYTIC, Polychromasia 1+ 03/25/19 13:48: PT 17.3 H, INR 1.4, APTT 28.2 03/25/19 13:48: Sodium 133 L, Potassium 3.9, Chloride 93 L, Carbon Dioxide 33.0 H, Anion Gap 7, BUN 12, Creatinine 0.92, Estim Creat Clear Calc 51.81, Est GFR (MDRD) Af Amer 103, Est GFR (MDRD) Non-Af 85, BUN/Creatinine Ratio 13.0, Glucose 191 H, Calcium 8.9, Total Bilirubin 0.30, AST 53 H, ALT 30, Alkaline Phosphatase 158 H, Total Protein 6.4, Albumin 2.0 L, Globulin 4.4 H, Albumin/Globulin Ratio 0.5 L 03/25/19 13:48: Lactic Acid 4.0 H* 03/25/19 16:15: Urine Color Yellow, Urine Clarity Sl. Cloudy, Urine pH 7.0, Ur Specific [place] 1.010, Urine Protein 100 H, Urine Glucose (UA) 1000 H, Urine Ketones 5 H, Urine Occult Blood Negative, Urine Nitrite Negative, Urine Bilirubin Negative, Urine Urobilinogen Normal, Ur Leukocyte Esterase Negative, Urine RBC Pending, Urine WBC Pending, Ur Squamous Epith Cells Pending, Urine Bacteria Pending, Urine Mucus Pending Clinical Impression(s) from Imaging Studies Chest X-Ray 03/25/19 13:56 IMPRESSION: 1. Increased atelectases and consolidation in the right upper lobe causing tracheal shift towards the right upper lobe atelectases. 2. Increased prominence of the interstitial lung markings may be due to lymphangitic spread of neoplasm. COMMENT: Baseline CT chest will be helpful for further evaluation. Code Visit Inpatient E&M: 93809 Init Hosp L3 Procedures: 08799 Advncd Care Plan 30 Min
[2019-03-25] MEDS: Vancomycin IV 1,000 MG/200 ML BAG 200 MG IV (17:26)
[2019-03-25 18:24] LABS: Reflex Lactate? Y
--- NOTE | 2019-03-25 19:08 | ED.DEP ---
ED Disposition - Plan for ED Patient: Disposition: Acute Care Hospital - Other Diagnosis: Healthcare-associated pneumonia, Severe sepsis, Hypoxemia Referrals: [facility] -
[2019-03-25] MEDS: LORazepam 0.5 MG Tablet PO (19:28)
[2019-03-25 19:34] LABS: Lactic Acid 1.4 mmol/L (0.4-1.9)
[2019-03-27 12:07] LABS: Pathologist Review Reviewed
== END 2019-03-25 19:51 | disposition home or self-care (01) ==
LOC: ED 15:40 → PCU 17:00 → ED 19:09
PROVIDERS: Emergency Provider Emergency Medicine; Family Provider Family Medicine; PCP Family Medicine; Visit Provider Internal Medicine
DX: A41.9 Sepsis, unspecified organism (principal); J18.9 Pneumonia, unspecified organism; R65.20 Severe sepsis without septic shock; J96.21 Acute and chronic respiratory failure with hypoxia; Y95 Nosocomial condition; E87.1 Hypo-osmolality and hyponatremia; D50.9 Iron deficiency anemia, unspecified; Z66 Do not resuscitate; C34.11 Malignant neoplasm of upper lobe, right bronchus or lung; C78.7 Secondary malignant neoplasm of liver and intrahepatic bile duct; C79.51 Secondary malignant neoplasm of bone; C77.9 Secondary and unspecified malignant neoplasm of lymph node, unspecified; E11.9 Type 2 diabetes mellitus without complications; F03.90 Unspecified dementia, unspecified severity, without behavioral disturbance, psychotic disturbance, mood disturbance, and anxiety; E78.5 Hyperlipidemia, unspecified; Z87.01 Personal history of pneumonia (recurrent); Z79.4 Long term (current) use of insulin; Z79.01 Long term (current) use of anticoagulants; Z79.899 Other long term (current) drug therapy; Z87.891 Personal history of nicotine dependence
CPT/HCPCS: 71045; 80053; 81001; 83605; 85025; 85610; 85730; 87040; 87086; 87633; 93005; 94640; 96365; 96366; 96367; 99285; J7030; A4216